=== PATIENT | female | born 1990 | race Caucasian/White ===

== ENCOUNTER → 2017-09-24 10:49 | Outpatient (CLI) | payer BC, SELFPAY | PROVIDERS: PCP Internal Medicine; Visit Provider Internal Medicine | DX: J11.1 Influenza due to unidentified influenza virus with other respiratory manifestations (principal) | CPT/HCPCS: 87275; 87276 ==

== ENCOUNTER 2021-04-01 10:29 | Emergency (ER) | payer BC, SELFPAY ==
[2021-04-01 11:13] VITALS: BP 133/67; PULSE 85; RESP 18; TEMP 36.6; O2SAT 96; BMI 41.5
--- NOTE | 2021-04-01 11:22 | HMH.EDUTC ---
[facility] [place] Clinical Impression: UTI (urinary tract infection) Qualifiers: Urinary tract infection type: site unspecified Hematuria presence: with hematuria Qualified Code(s): N39.0 - Urinary tract infection, site not specified Disposition: Home, Self-Care Condition on Discharge: Good Instructions: DI for Urinary Tract Infection (UTI) Additional Instructions: Drink plenty of fluids. Take tylenol or ibuprofen for pain or fever. Take the medications as directed. Follow up with your regular doctor. GO TO THE ER FOR ANY WORSENING SYMPTOMS The pyridium will make your urine turn orange, this is an expected side effect. It will stain your clothes if it comes into contact with them. Prescriptions: Ondansetron [Zofran 4mg ODT] 4 mg PO Q8HP PRN #20 tab.rapdis PRN Reason: Nausea Transmission Status: Received by [id number] Ciprofloxacin HCl 500 mg PO 14 #7 tab Transmission Status: Received by [id number] Phenazopyridine HCl [Pyridium 200mg Tablet] 200 pow PO TID #6 tab Transmission Status: Received by [id number] Referrals: Misbah Sanches [Primary Care Provider] - Time of Disposition: 11:51 Medical Decision Making - Medical Records Medical records reviewed: No: I reviewed the patient's medical records. - Sadi Inquiry Pt receiving controlled substance: No Vital Signs: 04/01/21 11:13 04/01/21 11:53 Temperature 97.8 F 98.3 F Temperature Source Oral Pulse Rate 81 Pulse Rate [Left] 85 Respiratory Rate 18 16 Blood Pressure 122/71 Blood Pressure [Right Arm] 133/67 Blood Pressure Mean [Right Arm] 89 02 Sat by Pulse Oximetry 96 - Lab Data Lab results reviewed: Yes: I reviewed the patient's lab results. Lab Results 04/01/21 11:16: Urine Color [place], Urine Appearance Cloudy, Urine pH 7.0, Ur Specific [place] 1.020, Urine Protein 1+, Urine Glucose (UA) Negative, Urine Ketones Negative, Urine Blood 3+, Urine Nitrate Positive A, Urine Bilirubin Negative, Urine Urobilinogen 1, Ur Leukocyte Esterase Trace Orders (Tests/Meds): ORDERS Category Date Time Status Urine Culture Stat Micro 04/01/21 11:34 Received [facility] UTC HPI - General Stated complaint: possible uti Time Seen by Provider: 04/01/21 11:25 Mode of Arrival: Ambulatory Source of Information: Patient Limitations: No Limitations Description of Symptoms (Recalled from Triage Doc. by RN): PT C/O BURNING WITH URINATION AND URINARY FREQUENCY SINCE FRIDAY. HEENT Symptoms (Recalled from RN notes): No Resp Symptoms (Recalled from RN notes): No Skin Symptoms (Recalled from RN notes): No MS Symptoms (Recalled from RN notes): No Functional Status (Recalled from RN notes): NA - History of Present Illness Provider Complaint: She c/o low back pain and burning while urinating since yesterday. She denies any fever or chills. - Related Data Home Medications Medication Instructions Recorded Confirmed Cetirizine HCl [Zyrtec] 10 mg PO DAILY 08/09/19 08/09/19 Meloxicam 7.5 mg PO DAILY 08/09/19 08/09/19 Sertraline HCl [Zoloft 50mg tablet] 50 mg PO DAILY 08/09/19 08/09/19 norethindrone-e.estradioL-iron 1 each PO DAILY 08/09/19 08/09/19 [Loestrin Fe 1.5-30 Tablet] Previous Rx's Medication Instructions Recorded Ibuprofen [Ibuprofen 600mg 600 mg PO Q6HP PRN #30 tab 08/09/19 Tablet] Ciprofloxacin HCl 500 mg PO 14 #7 tab 04/01/21 Ondansetron [Zofran 4mg ODT] 4 mg PO Q8HP PRN #20 tab.rapdis 04/01/21 Phenazopyridine HCl [Pyridium 200 pow PO TID #6 tab 04/01/21 200mg Tablet] Allergies Allergy/AdvReac Type Severity Reaction Status Date / Time Sulfa (Sulfonamide Allergy Mild Verified 06/04/19 16:50 Antibiotics) [SULFA (SULFONAMIDE ANTIBIOTICS)] - Worker's Comp Is this a Worker's Comp case?: No [facility] History - Hepatitis A Screen Drug use history?: No High risk sexual behaviors?: No History of sexually transmitted infection?: No Currently e
[2021-04-01 11:42] LABS: Apearance,Urine Cloudy (Clear); Bilirubin,Urine Negative (Negative); Blood, Urine 3+ (Negative); Color,Urine Amber (Yellow); Glucose,Urine (UA) Negative (Negative); Ketones,Urine Negative (Negative); Protein,Urine 1+ (Negative); UTC Leukocyte Esterase,Urine Trace (Negative); UTC Nitrate,Urine Positive (Negative); Urobilinogen,Urine 1 EU/dl (0.2)
[2021-04-01 11:53] VITALS: BP 122/71; PULSE 81; RESP 16; TEMP 36.8
== END 2021-04-01 11:57 | disposition home or self-care (01) ==
PROVIDERS: Emergency Provider Nurse Practitioner Family; PCP Internal Medicine
DX: N30.90 Cystitis, unspecified without hematuria (principal); B96.20 Unspecified Escherichia coli [E. coli] as the cause of diseases classified elsewhere
CPT/HCPCS: 81003; 87086; 87088; 87186; 99202; G0463

== ENCOUNTER → 2021-12-02 17:13 | Outpatient (CLI) | payer BC, SELFPAY | PROVIDERS: PCP Family Medicine; Visit Provider Family Medicine | DX: R63.5 Abnormal weight gain (principal); R53.83 Other fatigue; R06.83 Snoring; E66.01 Morbid (severe) obesity due to excess calories | CPT/HCPCS: G0399 ==

== ENCOUNTER 2022-04-29 03:12 | Emergency (ER) | payer BC, SELFPAY ==
[2022-04-29 03:14] VITALS: BP 135/67; PULSE 82; RESP 18; TEMP 36.9; O2SAT 98; BMI 41.5
--- NOTE | 2022-04-29 03:29 | CT_ITS ---
PROCEDURE INFORMATION: Exam: CT Abdomen And Pelvis Without Contrast Exam date and time: 04/29/2022 3:52 AM Age: 31 years old Clinical indication: Abdominal pain; Prior surgery; Surgery date: 6+ months; Surgery type: C section; Patient HX: Pain across epigastric area and into both flanks; Additional info: Epigastric pain TECHNIQUE: Imaging protocol: Computed tomography of the abdomen and pelvis without contrast. Radiation optimization: All CT scans at this facility use at least one of these dose optimization techniques: automated exposure control; mA and/or kV adjustment per patient size (includes targeted exams where dose is matched to clinical indication); or iterative reconstruction. COMPARISON: No relevant prior studies available. FINDINGS: Liver: Normal. No mass. Gallbladder and bile ducts: Normal. No calcified stones. No ductal dilation. Pancreas: Normal. No ductal dilation. Spleen: Normal. No splenomegaly. Adrenal glands: Normal. No mass. Kidneys and ureters: Normal. No hydronephrosis. No evidence of nephrolithiasis or urolithiasis. Stomach and bowel: Unremarkable. No obstruction. No mucosal thickening. Appendix: No evidence of appendicitis. Intraperitoneal space: Unremarkable. No free air. No significant fluid collection. Vasculature: Unremarkable. No abdominal aortic aneurysm. Lymph nodes: Unremarkable. No enlarged lymph nodes. Urinary bladder: Unremarkable as visualized. Reproductive: Unremarkable as visualized. Bones/joints: Unremarkable. No acute fracture. Soft tissues: Unremarkable. IMPRESSION: No acute findings.
[2022-04-29 03:43] LABS: Basophils # 0.1 K/mm3 (0-0.2); Eosinophils # 0.2 K/mm3 (0.0-0.4); Eosinophils % 1.8 % (0.1-12.0); Hematocrit 41.7 % (37.0-47.0); Hemoglobin 13.4 g/dL (12.2-16.2); Lymphocytes % 22.6 % (10-50); Mean Corpuscular Hemoglobin 29.9 pg (27.0-31.2); Mean Corpuscular Volume 93.2 fl (81-99); Mean Platelet Volume 8.3 fl (7.4-10.4); Monocytes # 0.3 K/mm3 (0.1-1.0); Monocytes % 3.8 % (1.7-9.3); Neutrophils # 6.4 K/mm3 (1.8-7.8); Neutrophils % 70.8 % (37.0-80.0); Platelet Count 278 K/mm3 (142-424); Red Blood Count 4.47 M/mm3 (4.20-5.40); Red Cell Distribution Width 13.7 % (11.5-17.5)
[2022-04-29 03:43] LABS: Microscopic, Urine URINE MICROSCOPIC (MICROSCOPIC)
[2022-04-29 03:45] LABS: Appearance,Urine CLEAR (Clear); Bilirubin,Urine Negative (Negative); Blood, Urine TRACE-I (Negative); Color,Urine YELLOW (Yellow); Glucose,Urine (UA) Negative (Negative); Ketones,Urine Negative (Negative); Leukocyte Esterase,Urine Negative (Negative); Nitrate,Urine Negative (Negative); Protein,Urine Negative (Negative); Specific Gravity, Urine >= 1.030 (1.005-1.030)
--- NOTE | 2022-04-29 03:46 | HMH.EDABDPAI ---
Discharge Plan Disposition Patient Disposition: Home, Self-Care Chief Complaint: Abdominal Pain Prescriptions Prescriptions: No Action norethindrone-e.estradiol-iron 1 EACH tablet 1 each PO DAILY meloxicam 7.5 MG tablet 7.5 mg PO DAILY sertraline 50 MG tablet 50 mg PO DAILY cetirizine 10 MG capsule 10 mg PO DAILY ibuprofen 600 MG tablet 600 mg PO Q6HP PRN (Reason: Mild Pain) Qty: 30 0RF Referrals Follow up/Referrals: Misbah Sanches MD [Primary Care Provider] - See instructions Clinical Impressions Clinical Impression: Abdominal pain Instructions Patient Instructions: DI for Acute Abdominal Pain Discharge ED Provider: Petros Pedersen Abdominal Pain HPI General Chief Complaint: Abdominal Pain Stated Complaint: ? gallbladder pain Time Seen by Provider: 04/29/22 03:46 Mode of Arrival: Ambulatory Source of Information: Patient, Spouse and Medical Record Limitations: No Limitations Description of Symptoms (Recalled from ER Triage Doc. by RN): PT REPORTS RIGHT UPPER/EPIGASTRIC PAIN WITH RADIATION TO HER BACK. PT REPORTS A PREVIOUS EPISODE THAT WAS SIMILAR AND STATES SHE THINKS IT IS HER GALLBLADDER. History of Present Illness HPI narrative: rt upper abd pain with n/v MD complaint: abdominal pain Onset (ago): hour(s) Consistency: intermittent Location: RUQ Severity: moderate Radiation: RUQ Associated symptoms: nausea and vomiting Related Data Home Medications Medication Instructions Recorded Confirmed cetirizine 10 mg capsule 10 mg PO DAILY Allergy symptoms 08/09/19 04/29/22 meloxicam 7.5 mg tablet 7.5 mg PO DAILY VASCULAR 08/09/19 04/29/22 MALFORMATION norethindrone 1.5 mg-ethinyl 1 each PO DAILY control 08/09/19 04/29/22 estradiol 30 mcg(21)/iron 75 mg(7) tablet sertraline 50 mg tablet 50 mg PO DAILY Anxiety 08/09/19 04/29/22 Previous Rx's Medication Instructions Recorded ibuprofen 600 mg tablet 600 mg PO Q6HP PRN Mild Pain #30 08/09/19 tabs Allergies Allergy/AdvReac Type Severity Reaction Status Date / Time Sulfa (Sulfonamide Allergy Mild Verified 06/04/19 16:50 Antibiotics) [SULFA (SULFONAMIDE ANTIBIOTICS)] PFSH PFSH Medical History (Updated 04/29/22 @ 05:10 by Petros Pedersen MD) Anxiety Social History (Updated 04/29/22 @ 03:39 by Kellen Vazquez RN) Smoking Status: Never smoker alcohol intake: never current occupational status: employed Travel in the last 8 weeks: None household members: family housing: house ROS Obtained: Yes All systems reviewed & no additional complaints except as documented Constitutional Constitutional: Denies fever(s) ENT Ears, Nose, Mouth, and Throat: Denies epistaxis Cardiovascular Cardiovascular: Denies chest pain with activity Respiratory Respiratory: Denies cough Gastrointestinal Gastrointestingal: Reports as per HPI and vomiting Physical Exam General General appearance: alert and obese Head Head exam: normocephalic Eye Eye exam: Present PERRL and EOMI; Absent scleral icterus ENT ENT exam: Present mucous membranes moist Neck Neck exam: Present trachea midline Respiratory Respiratory exam: Present normal lung sounds bilaterally Cardiovascular Cardiovascular exam: Present regular rate Abdominal Exam Abdominal exam: Present soft, tenderness and Contreras's sign; Absent guarding Abdominal tenderness: Present RUQ and moderate Extremities Exam Extremities exam: Present full ROM Back Exam Back exam: Absent CVA tenderness (R) Neurological Exam Neurological exam: Present alert, oriented X3 and CN II-XII intact Psychiatric Psychiatric exam: Present normal affect Skin Skin exam: Absent rash Medical Decision Making Medical Records Medical records reviewed: Yes I reviewed the patient's medical records. Sadi Inquiry Pt receiving controlled substance: No Vital Signs: 04/29/22 03:14 04/29/22 04:37 04/29/22 05:01 Temperature 98.4 F 98.1 F Temper
[2022-04-29 03:48] LABS: Amorphous Sediment,Urine Trace /lpf; Squamous Epithelial Cell,Urine Occasional #/hpf (0-5); Urine Pregnancy, HCG Qual. Negative (Negative); WBC,Urine Occasional #/hpf (0-3)
[2022-04-29 03:52] LABS: Alanine Aminotransferase 46 U/L (12-78); Albumin Level 3.8 g/dl (3.5-5.0); Albumin/Globulin Ratio 1.3 (1.1-1.8); Alkaline Phosphatase 76 U/L (38-126); Amylase 67 U/L (30-110); Anion Gap 11.9 mEq/L (5-15); Aspartate Amino Transferase 73 U/L (14-36); Bilirubin,Total 0.4 mg/dl (0.2-1.3); Blood Urea Nitrogen 17 mg/dl (7-17); Calcium 8.5 mg/dl (8.4-10.2); Carbon Dioxide 23 mmol/L (22.0-30.0); Chloride 109 mmol/L (98-107); Creatinine Clearance Estimated 88 mL/min (50-200); Estimated Glomerular Filt Rate 98 ml/min (>60); GFR (African American) 118 ML/MIN (>60); Glucose 114 mg/dl (74-100); Lipase 127 U/L (23-300); Potassium 3.9 mmoL/L (3.5-5.1); Sodium 140 mmol/L (136-145); Total Protein,Serum 6.8 g/dl (6.3-8.2)
[2022-04-29 03:57] LABS: C-Reactive Protein 15.3 mg/L (0-4)
[2022-04-29 04:13] LABS: Erythrocyte Sedimentation Rate 19 mm/hr (0-20)
--- NOTE | 2022-04-29 04:20 | PC.NURSE ---
PT AWARE OF NPO STATUS AND EXPECTED WAIT TIMES.
[2022-04-29 04:37] VITALS: BP 135/97; PULSE 83; RESP 15; TEMP 36.7; O2SAT 98
--- NOTE | 2022-04-29 05:00 | PC.NURSE ---
MD MADE AWARE THAT ALL TEST RESULTS ARE BACK. PT REQUESTING DISCHARGE.
[2022-04-29 05:01] VITALS: BP 149/90; PULSE 81; RESP 16; TEMP 36.7; O2SAT 97
--- NOTE | 2022-04-29 05:08 | PC.NURSE ---
PT AWARE OF PLAN TO DISCHARGE.
== END 2022-04-29 05:16 | disposition home or self-care (01) ==
PROVIDERS: Emergency Provider Emergency Medicine; PCP Internal Medicine
DX: R10.11 Right upper quadrant pain (principal); R11.2 Nausea with vomiting, unspecified
CPT/HCPCS: 74176; 80053; 81001; 81025; 82150; 83690; 84145; 85025; 85651; 86140; 96361; 96374; 96375; 99284; J2405

== ENCOUNTER → 2022-05-08 10:13 | Outpatient (CLI) | payer BC, SELFPAY ==
--- NOTE | 2022-05-08 10:19 | US_ITS ---
FINAL REPORT CLINICAL HISTORY: RUQ PAIN FINDINGS: RIGHT UPPER QUADRANT ULTRASOUND Sonographic images of the right upper quadrant were obtained. The pancreas is partially obscured.The liver has an unremarkable appearance. There are multiple gallstones in the gallbladder. Moderate sludge is identified. There is no evidence of gallbladder wall thickening. There is a small rounded hyperechoic focus in the region of the maty hepatis, may represent a small hemangioma measuring less than 1 cm. The common duct is normal. Limited images of the right kidney are normal. IMPRESSION: Stones and sludge in the gallbladder without biliary obstruction. Reviewed, Interpreted and Dictated by Lucas Puente MD Transcribed by Magda Connell Authenticated and [facility]
== END ==
PROVIDERS: PCP Internal Medicine; Visit Provider Physician Assistant
DX: R10.11 Right upper quadrant pain (principal)
CPT/HCPCS: 76705

== ENCOUNTER → 2022-05-25 08:49 | Outpatient (CLI) | payer BC, SELFPAY ==
[2022-05-25 10:05] LABS: Urine Pregnancy, HCG Qual. Negative (Negative)
[2022-05-25 10:06] LABS: Basophils # 0.1 K/mm3 (0-0.2); Basophils % 1.3 % (0.1-2.0); Eosinophils # 0.2 K/mm3 (0.0-0.4); Eosinophils % 2.2 % (0.1-12.0); Hematocrit 43.1 % (37.0-47.0); Hemoglobin 14.1 g/dL (12.2-16.2); Lymphocytes # 1.8 K/mm3 (0.7-4.5); Lymphocytes % 19.2 % (10-50); Mean Corpuscular HGB Conc 32.7 g/dL (31.8-35.4); Mean Corpuscular Hemoglobin 29.6 pg (27.0-31.2); Mean Corpuscular Volume 90.6 fl (81-99); Mean Platelet Volume 8.4 fl (7.4-10.4); Monocytes # 0.4 K/mm3 (0.1-1.0); Monocytes % 4.2 % (1.7-9.3); Neutrophils # 6.9 K/mm3 (1.8-7.8); Platelet Count 310 K/mm3 (142-424); Red Blood Count 4.76 M/mm3 (4.20-5.40); Red Cell Distribution Width 13.6 % (11.5-17.5); White Blood Count 9.4 K/mm3 (4.8-10.8)
[2022-05-25 10:14] LABS: Chloride 106 mmol/L (98-107); Potassium 4.6 mmoL/L (3.5-5.1); Sodium 140 mmol/L (136-145)
[2022-05-25 10:17] LABS: Alanine Aminotransferase 19 U/L (12-78); Albumin Level 4.1 g/dl (3.5-5.0); Albumin/Globulin Ratio 1.4 (1.1-1.8); Alkaline Phosphatase 79 U/L (38-126); Anion Gap 17.6 mEq/L (5-15); Aspartate Amino Transferase 25 U/L (14-36); Bilirubin,Total 0.4 mg/dl (0.2-1.3); Blood Urea Nitrogen 19 mg/dl (7-17); Carbon Dioxide 21 mmol/L (22.0-30.0); Estimated Glomerular Filt Rate 117 ml/min (>60); GFR (African American) 141 ML/MIN (>60); Globulin 2.9 g/dL (1.3-3.2); Glucose 81 mg/dl (74-100)
== END ==
PROVIDERS: PCP Internal Medicine; Visit Provider Surgery
DX: Z01.812 Encounter for preprocedural laboratory examination (principal); Z20.822 Contact with and (suspected) exposure to COVID-19; K80.20 Calculus of gallbladder without cholecystitis without obstruction
CPT/HCPCS: 36415; 80053; 81025; 85025; C9803; U0003; U0005

== ENCOUNTER 2022-05-27 10:17 | Day surgery (SDC) | payer BC, SELFPAY ==
[2022-05-23 09:25] VITALS: BMI 41.5
[2022-05-27] VITALS (12 sets, daily range): BP systolic 106–142; BP diastolic 70–87; PULSE 82–108; RESP 14–18; TEMP 36.1–43; O2SAT 94–100
--- NOTE | 2022-05-27 10:50 | EXP.ANES.CKL ---
[facility] Medical History Allergies Anxiety Gallbladder disease History of COVID-19 History of gastroesophageal reflux (GERD) Surgical History History of placement of ear tubes Hx of adenoidectomy Hx of section Hx of tonsillectomy [place] teeth removed Family History Other No significant family history Social History Smoking Status: Never smoker alcohol intake: never substance use type: denies use current occupational status: employed Travel in the last 8 weeks: None household members: family housing: house [facility] Anesthesia Checklist Patient Identification Patient Identification: Verbal (Name & ) Structural Data Admitted From: Home Planned Operative Procedure/s: lap max Consent for Planned Operative Procedure(s) Verified: Yes NPO Status Verified Time NPO: 00:00 Additional verifications Anesthesia Reactions: Yes (nausea) Hx Blood Transfusions: No Blood Transfusion Reaction: No Airway Assessment C-Spine Mobility Assessed: Yes TMJ Mobility Assessed: Yes Dentition: Good Dentition Neurological Assessment Level of Consciousness: Awake, Alert and Appropriate Anesthesia Plan Anesthesia Risk discussed: Yes Anesthesia Plan: Verified ASA Class: II Anesthesia Type: General
--- NOTE | 2022-05-27 12:21 | EXP.OP.NOTE ---
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 Trivedi for gallbladder.? She has been having symptoms over the past several weeks consistent with biliary colic.? She had a severe attack after she had eaten a fish velasco and presented to the emergency department on 04/29/2022 with symptoms of severe epigastric pain radiating into her right upper quadrant and into the right back.? She was able to be managed as an outpatient at that time and underwent gallbladder ultrasound as an outpatient which reveals multiple gallstones.? She has had 2 severe attacks and has had some ongoing minor symptoms.? She has daily discomfort.? She has been watching her diet. The options were discussed with her and she wished to pursue cholecystectomy. Operative findings:: She had a somewhat distended gallbladder with some omental adhesions. There were small stones. She had fatty infiltration of the liver. Operative note:: Patient was taken to the operating room. She was given preoperative intravenous antibiotics. In the operating room she was placed in a supine position. General anesthesia was induced via endotracheal tube. Abdomen was prepped and draped in the standard surgical fashion. Subumbilical skin incision was made and while performing abdominal wall lift Veress needle was inserted. CO2 pneumoperitoneum was achieved to 15 mmHg. 11 mm optical trocar was inserted. Intraperitoneal contents were visualized. She was positioned in reverse Trendelenburg left side down. She was noted to have some mild fatty infiltration of the liver and hepatomegaly. The gallbladder was grasped retracted anteriorly and superiorly over the dome of the liver. There were some omental adhesions to the neck of the gallbladder which were taken down using blunt dissection. Infundibulum of the gallbladder was retracted anterolaterally. Blunt dissection was carried out at the neck of the gallbladder bluntly incising the visceral peritoneum. The cystic duct and cystic artery were identified and the critical view of safety. Cystic duct was isolated, multiply clipped, and sharply divided. Cystic artery was carefully coagulated with JUAN ALBERTO ultrasonic harmonic ji and divided. Gallbladder was dissected free from the liver in a retrograde fashion using JUAN ALBERTO ultrasonic harmonic ji. Gallbladder was placed within an Endo Catch retrieval device and removed from the peritoneal cavity via the umbilical trocar site. Limited spot use of electrocautery was used on the gallbladder fossa for good hemostasis. Fascia at the umbilicus was closed with the laparoscopic Neoclose device. Trochars were then removed as CO2 pneumoperitoneum was evacuated. Local anesthetic was infiltrated. Skin incisions were closed with 4-0 Monocryl in a subcuticular fashion. Steri-Strips and dressings were applied. Condition: stable Disposition: PACU Complications:: None immediately apparent
--- NOTE | 2022-05-27 12:38 | P.PNANES_ITS ---
[facility] Anesthesia Record Part I Anesthesia Record I Intake, IV Amount: 700 Estimated blood loss (mL): 15 Urine output (mL): 15 Blood Products used (#): none Blood Pressure: 106/72 SaO2: 94 Pulse Rate: 108 Respiratory Rate: 18 Temperature: 97.7 F Patient is:: Drowsy and Stable Stable to PACU at:: 12:27
--- NOTE | 2022-05-28 07:15 | EXP.ANES.II ---
[facility] Anesthesia Record Part II Anesthesia Record Part II Discharge Time: 12:58 Destination: Surgical Day Care (OP Surgery) PACU nurse assessment reviewed?: Yes Patient Condition:: Good Anesthesia Complications:: None Swallowing reflex intact?: Yes Cyanosis?: No Blood Pressure: 120/83 Pulse Rate: 82 Temperature: 97.2 F Mental Status: Alert & Oriented Pain level:: 0 Nausea and/or vomitting:: None Intake, IV Amount: 0
[2022-05-28 07:17] VITALS: BP 120/83; PULSE 82; TEMP 36.2
== END 2022-05-27 13:35 | disposition home or self-care (01) ==
PROVIDERS: PCP Internal Medicine; Visit Provider Surgery
PROC: 0FT44ZZ Resection of Gallbladder, Percutaneous Endoscopic Approach (ICD-10-PCS; CPT 47562; principal; 2022-05-27 12:45)
DX: K80.12 Calculus of gallbladder with acute and chronic cholecystitis without obstruction (principal); Z79.899 Other long term (current) drug therapy
CPT/HCPCS: 47562; 88304; 96374; J2405

== ENCOUNTER → 2022-09-03 20:15 | Outpatient (CLI) | payer BC, SELFPAY | LOC: SL 20:18 | PROVIDERS: PCP Family Medicine; Visit Provider Nurse Practitioner Family | DX: G47.33 Obstructive sleep apnea (adult) (pediatric) (principal); R40.0 Somnolence; R06.83 Snoring; E66.9 Obesity, unspecified; Z68.41 Body mass index [BMI] 40.0-44.9, adult | CPT/HCPCS: 95810 ==

== ENCOUNTER 2022-11-04 15:12 | Emergency (ER) | payer BC, SELFPAY ==
--- NOTE | 2022-11-04 15:16 | XR_ITS ---
FINAL REPORT CLINICAL HISTORY: fall in hole, twisted rt ankle FINDINGS: Right ankle Three views were obtained. There is no acute fracture or dislocation. The joint spaces appear normal. No soft tissue abnormality is identified. IMPRESSION: No acute process. Reviewed, Interpreted and Dictated by Lucas Puente MD Transcribed by Magda Connell Authenticated and [facility]
--- NOTE | 2022-11-04 15:16 | XR_ITS ---
FINAL REPORT CLINICAL HISTORY: fall in hole, twisted rt ankle FINDINGS: Right foot Three views were obtained. There is no acute fracture or dislocation. The joint spaces appear normal. No soft tissue abnormality is identified. IMPRESSION: No acute process. Reviewed, Interpreted and Dictated by Lucas Puente MD Transcribed by Magda Connell Authenticated and [facility]
[2022-11-04 15:20] VITALS: BP 163/94; PULSE 87; RESP 20; TEMP 36.8; O2SAT 97; BMI 43.4
--- NOTE | 2022-11-04 15:37 | EXP.UTC ---
Discharge Plan Disposition Patient Disposition: Home, Self-Care Condition: Good Prescriptions Prescriptions: No Action norethindrone-e.estradiol-iron 1 EACH tablet 1 each PO DAILY meloxicam 7.5 MG tablet 7.5 mg PO DAILY sertraline 50 MG tablet 100 mg PO DAILY cetirizine 10 MG capsule 10 mg PO DAILY Referrals Follow up/Referrals: Misbah Sanches MD [Primary Care Provider] - See instructions Activity Restrictions/Add. Instructions Additional Instructions/Restrictions: *weight bearing as tolerated *RICE, Rest the extremity, Ice 15-20 minutes 3-4 times daily, Compress- wear the rip wrap as discussed as much as possible to help reduce swelling and pain, Elevate the extremity when at rest *Rip wrap is for support and help control swelling, use it except in the shower. Be sure that is not to tight but not to loose either *Elevate when resting? *Ibuprofen 600-800mg every 6-8 hours as needed for pain an inflammation. If need something more can take Tylenol in between doses of Ibuprofen to help Immediately follow up with your family doctor for new or worsening of symptoms, or no noticeable improvement over the next 3-5 days Clinical Impressions Clinical Impression: Foot sprain Qualifiers: Encounter type: initial encounter Laterality: right Qualified Code(s): S93.601A - Unspecified sprain of right foot, initial encounter Instructions Patient Instructions: How To Perform RICE (Rest, Ice, Compress, Elevate), How to Apply an Rip Wrap Discharge ED Provider: Lay Joseph [facility] General Stated complaint: ao 11/04 fall, right foot pain Mode of Arrival: Ambulatory Source of Information: Patient Limitations: No Limitations Time Seen by Provider: 11/04/22 15:37 Description of Symptoms (Recalled from Triage Doc. by RN): twisted right ankle in a hole today HEENT Symptoms (Recalled from RN notes): Yes Resp Symptoms (Recalled from RN notes): No Skin Symptoms (Recalled from RN notes): No MS Symptoms (Recalled from RN notes): No Functional Status (Recalled from RN notes): n/a History of Present Illness Provider Complaint: Patient states that earlier today she was walking and stepped in a hole and twisted her right foot and ankle States that she has been having pain when she puts weight on it States that this evening it was still hurting so she came in Related Data Home Medications Medication Instructions Recorded Confirmed cetirizine 10 mg capsule 10 mg PO DAILY Allergy symptoms 08/09/19 11/04/22 meloxicam 7.5 mg tablet 7.5 mg PO DAILY VASCULAR 08/09/19 11/04/22 MALFORMATION norethindrone 1.5 mg-ethinyl 1 each PO DAILY control 08/09/19 11/04/22 estradiol 30 mcg(21)/iron 75 mg(7) tablet sertraline 50 mg tablet 100 mg PO DAILY Anxiety 08/09/19 11/04/22 Allergies Allergy/AdvReac Type Severity Reaction Status Date / Time Sulfa (Sulfonamide Allergy Intermediate Hives Verified 11/04/22 15:35 Antibiotics) [SULFA (SULFONAMIDE ANTIBIOTICS)] Worker's Comp Is this a Worker's Comp case?: No [facility] Disclaimer: The information contained in this section may have been updated after the patient was seen, as this information can be updated by other users. Medical History Allergies Anxiety Gallbladder disease History of COVID-19 History of gastroesophageal reflux (GERD) Surgical History History of laparoscopic cholecystectomy History of placement of ear tubes Hx of adenoidectomy Hx of section Hx of tonsillectomy [place] teeth removed Family History Other TIMBO (obstructive sleep apnea) Social History Smoking Status: Never smoker alcohol intake: never substance use type: denies use current occupational status: employed Travel in the last 8 weeks: No
[2022-11-04 16:45] VITALS: BP 163/94; PULSE 87; RESP 20; TEMP 36.8; O2SAT 97
== END 2022-11-04 16:45 | disposition home or self-care (01) ==
PROVIDERS: Emergency Provider Nurse Practitioner; PCP Internal Medicine
DX: S93.601A Unspecified sprain of right foot, initial encounter (principal); W18.42XA Slipping, tripping and stumbling without falling due to stepping into hole or opening, initial encounter
CPT/HCPCS: 29540; 73610; 73630; 99212; 99213; G0463

== ENCOUNTER 2023-10-17 10:31 | Outpatient (CLI) | payer BC, SELFPAY ==
[2023-10-17 11:00] LABS: Basophils # 0.1 K/mm3 (0-0.2); Basophils % 0.8 % (0.1-2.0); Eosinophils # 0.1 K/mm3 (0.0-0.4); Eosinophils % 2.3 % (0.1-12.0); Hematocrit 42.6 % (37.0-47.0); Hemoglobin 13.9 g/dL (12.2-16.2); Lymphocytes # 1.6 K/mm3 (0.7-4.5); Lymphocytes % 27.6 % (10-50); Mean Corpuscular HGB Conc 32.6 g/dL (31.8-35.4); Mean Corpuscular Volume 92.2 fl (81-99); Mean Platelet Volume 8.4 fl (7.4-10.4); Monocytes # 0.3 K/mm3 (0.1-1.0); Monocytes % 5.1 % (1.7-9.3); Neutrophils # 3.8 K/mm3 (1.8-7.8); Neutrophils % 64.2 % (37.0-80.0); Platelet Count 265 K/mm3 (142-424); Red Blood Count 4.62 M/mm3 (4.20-5.40); Red Cell Distribution Width 13.7 % (11.5-17.5); White Blood Count 5.9 K/mm3 (4.8-10.8)
[2023-10-17 11:45] LABS: Alanine Aminotransferase 24 U/L (12-78); Albumin Level 4.2 g/dl (3.5-5.0); Albumin/Globulin Ratio 1.5 (1.1-1.8); Alkaline Phosphatase 75 U/L (38-126); Anion Gap 11.5 mEq/L (5-15); Aspartate Amino Transferase 24 U/L (14-36); Bilirubin,Total 0.6 mg/dl (0.2-1.3); Blood Urea Nitrogen 16 mg/dl (7-17); Calcium 8.7 mg/dl (8.4-10.2); Carbon Dioxide 23 mmol/L (22.0-30.0); Chloride 110 mmol/L (98-107); Estimated Glomerular Filt Rate 116 ml/min (>60); GFR (African American) 140 ML/MIN (>60); Globulin 2.8 g/dL (1.3-3.2); Glucose 86 mg/dl (74-100); Potassium 4.5 mmoL/L (3.5-5.1); Sodium 140 mmol/L (136-145)
[2023-10-21 10:32] LABS: Anti Mullerian Hormone (AMH) 8.91
== END 2023-10-17 23:59 ==
PROVIDERS: PCP Internal Medicine; Visit Provider Obstetrics & Gynecology
DX: Z79.1 Long term (current) use of non-steroidal anti-inflammatories (NSAID) (principal)
CPT/HCPCS: 36415; 80053; 82397; 85025

== ENCOUNTER 2023-10-24 09:43 | Outpatient (CLI) | payer BC, SELFPAY ==
--- NOTE | 2023-10-24 09:44 | FL_ITS ---
FINAL REPORT CLINICAL HISTORY: desire for 0.45 min DAP 925.91 FINDINGS: FLUOROSCOPY LESS THAN 1 HOUR HISTORY: Fluoroscopy guidance. Fluoroscopic guidance was provided for hysterosalpingography. 7 spot films were obtained. A total of 0.45 minutes of fluoroscopy time were used. Peritoneal contrast spillage is noted bilaterally. Total DAP: 925.91 mGy IMPRESSION: As above. Reviewed, Interpreted and Dictated by Efrain Herrera III, MD Transcribed by Odalys Anna Authenticated and [facility]
[2023-10-24] MEDS: IOPAMIDOL-370 (76%);100ML BOTTLE 50 ML IV (11:54)
== END 2023-10-24 23:59 ==
LOC: RAD 09:44
PROVIDERS: PCP Internal Medicine; Visit Provider Obstetrics & Gynecology
DX: Z31.9 Encounter for procreative management, unspecified (principal)
CPT/HCPCS: 74740; Q9967

== ENCOUNTER 2023-10-29 15:41 | Outpatient (CLI) | payer BC, SELFPAY ==
--- NOTE | 2023-10-29 15:43 | US_ITS ---
PROCEDURE: US TRANSVAGINAL CLINICAL INDICATION: Follicle Scan Day 13 of cycle COMPARISON: No exams were available for comparison FINDINGS: Transvaginal sonographic images of the pelvis were obtained. UTERUS: 7.1cm x 3.7 cmx 3.8 cm anteverted with a combined endometrial thickness of 5.4mm. LEFT OVARY: 3.0cmx2.8 cmx2.0cm with a volume of 8.7ml. There are 15 follicles in the left ovary. Follicle 1.: 0.65 cm Follicle 2.: 0.78 cm Follicle 3.: 0.43 cm Follicle 4: 0.54 cm Follicle 5.: 0.35 cm Follicle 6.: 0.62 cm Follicle 7.: 0.34 cm Follicle 8.: 0.29 cm Follicle 9.: 0.54 cm Follicle 10.: 0.62 cm Follicle 11.: 0.72 cm Follicle 12.: 0.64 cm Follicle 13.: 0.68 cm Follicle 14.: 1.1 cm Follicle 15.: 0.59 cm. RIGHT OVARY: 2.6 cmx 2.4cmx2.0cm with a volume of 7.8ml. There are 14 follicles in the right ovary. Follicle 1.: 0.61 cm Follicle 2.: 0.66 cm Follicle 3.: 0.68 cm Follicle 4.: 0.72 cm Follicle 5.: 0.71 cm Follicle 6.: 0.90 cm Follicle 7.: 0.41 cm Follicle 8.: 0.61 cm Follicle 9.: 0.30 cm Follicle 10.: 0.48 cm Follicle 11.: 0.84 cm Follicle 12.: 0.55 cm Follicle 13.: 0.74 cm Follicle 14.: 0.68 cm Both ovaries are seen and have multiple follicles. Doppler flow to both ovaries are seen. There is no fluid in the cul-de-sac. IMPRESSION: 1. Anteverted uterus normal in shape and size. The endometrium is normal in appearance and measures 5.4 mm. 2. Both ovaries are seen and have multiple follicles. The left ovary has 15 follicles in the right ovary has 14 follicles. 3. No fluid in the cul-de-sac. Dictated by: Magan Castillo MD 10/29/2023 17:00 Magan Castillo MD in [place] 10/29/2023 17:00
== END 2023-10-29 23:59 ==
LOC: RAD 15:43
PROVIDERS: PCP Internal Medicine; Visit Provider Obstetrics & Gynecology
DX: N97.0 Female infertility associated with anovulation (principal)
CPT/HCPCS: 76830

== ENCOUNTER 2023-12-05 14:09 | Outpatient (CLI) | payer BC, SELFPAY ==
[2023-12-06 09:14] LABS: Progesterone 2.8 ng/mL (.)
== END 2023-12-05 23:59 | disposition home or self-care (01) ==
LOC: LAB 14:10
PROVIDERS: PCP Internal Medicine; Visit Provider Obstetrics & Gynecology
DX: E28.2 Polycystic ovarian syndrome (principal)
CPT/HCPCS: 36415; 84144

== ENCOUNTER 2023-12-26 12:18 | Outpatient (CLI) | payer BC, SELFPAY ==
--- NOTE | 2023-12-26 12:18 | US_ITS ---
PROCEDURE: US TRANSVAGINAL CLINICAL INDICATION: pcos, infertility COMPARISON: US US TRANSVAGINAL from 10/29/2023 FINDINGS: Transvaginal sonographic images of the pelvis were obtained. UTERUS: 8.2cm x 3.8 cmx 3.6 cm anteverted with a combined endometrial thickness of 7.2mm. 4 mm nabothian cyst. There is an anterior fibroid measuring 1.7 cm x 1.6 cm x 1.5 cm. LEFT OVARY: [id number] with a volume of 10.2ml. There is a single follicle measuring 2.2 cm. Left ovary is difficult to visualize. RIGHT OVARY: 2cmx 5ffq9cm with a volume of 7.4ml. Follicle 1. 0.89 cm Follicle 2. 0.73 cm Follicle 3. 0.95 cm Follicle 4. 0.1 cm Follicle 5. 1.03 cm Follicle 6. 0.69 cm Follicle 7. 0.49 cm Follicle 8. 0.47 cm Follicle 9. 1.06 cm Follicle 10. 1.11 cm Follicle 11. 1.14 cm Both ovaries are seen and appear polycystic. Doppler flow to both ovaries are seen. There is no fluid in the cul-de-sac. IMPRESSION: 1. Anteverted uterus normal in shape and size. 2. There is an anterior fibroid measuring 1.7 cm. 3. Left ovary is difficult to visualize but appears to have a single follicle. 4. Right ovary appears polycystic and there were multiple small follicles. 5. No fluid in the cul-de-sac Dictated by: Magan Castillo MD 12/26/2023 18:19 Magan Castillo MD in [place] 12/26/2023 18:19
== END 2023-12-26 23:59 | disposition home or self-care (01) ==
LOC: RAD 12:18
PROVIDERS: PCP Internal Medicine; Visit Provider Obstetrics & Gynecology
DX: E28.2 Polycystic ovarian syndrome (principal); N97.0 Female infertility associated with anovulation
CPT/HCPCS: 76830

== ENCOUNTER 2024-01-06 08:12 | Outpatient (CLI) | payer BC, SELFPAY ==
[2024-01-07 12:59] LABS: Progesterone 22.5 ng/mL (.)
== END 2024-01-06 23:59 | disposition home or self-care (01) ==
LOC: LAB 08:12
PROVIDERS: PCP Internal Medicine; Visit Provider Obstetrics & Gynecology
DX: N97.0 Female infertility associated with anovulation (principal); E28.2 Polycystic ovarian syndrome
CPT/HCPCS: 36415; 84144

== ENCOUNTER 2024-01-20 15:38 | Outpatient (CLI) | payer BC, SELFPAY ==
[2024-01-22 11:15] LABS: FSH 5.7 mIU/mL (.); LH 6.8 mIU/mL (.); Progesterone 0.3 ng/mL (.)
== END 2024-01-20 23:59 | disposition home or self-care (01) ==
LOC: LAB 15:39
PROVIDERS: Visit Provider Obstetrics & Gynecology
DX: N97.0 Female infertility associated with anovulation (principal); E28.2 Polycystic ovarian syndrome
CPT/HCPCS: 36415; 83001; 83002; 84144

== ENCOUNTER 2024-01-27 13:34 | Outpatient (CLI) | payer BC, SELFPAY ==
--- NOTE | 2024-01-27 13:34 | US_ITS ---
PROCEDURE: US TRANSVAGINAL CLINICAL INDICATION: Follicle scan COMPARISON: US US TRANSVAGINAL from 12/26/2023 FINDINGS: Transvaginal sonographic images of the pelvis were obtained. UTERUS: 7.7 cm x 5.0cmx 3.9 cm anteverted with a combined endometrial thickness of 6.9mm. Homogeneous endometrium. There are multiple small nabothian cysts in the cervix. There appears to be an anterior fibroid measures 1.7 cm x 1.3 cm x 1.6 cm. LEFT OVARY: 2.0cmx3.1cmx2.6cm with a volume of 8.3ml. More difficult to visualize. Follicle 1. 1.51 cm. Follicle 2. 1.89 cm. RIGHT OVARY: 3.9 cmx 2.2cmx2.4cm with a volume of 10.5ml. Follicle 1. 0.66 cm. Follicle 2. 1.45 cm. Follicle 3. 1.56 cm. Follicle 4. 1.38 cm. Follicle 5. 0.57 cm. Follicle 6. 0.63 cm. Follicle 7. 0.66 cm. The right ovary has a polycystic appearance with multiple small peripheral follicles. Both ovaries are seen and appear normal. Doppler flow to both ovaries are seen. There is no fluid in the cul-de-sac. IMPRESSION: 1. Anteverted uterus normal in shape and size. The endometrium is 6.9 mm and appears homogeneous. 2. Both ovaries are seen and appear normal. 3. The right ovary has 7 small follicles. The left ovary has 2 small follicles. 4. No fluid in the cul-de-sac. Dictated by: Magan Castillo MD 01/27/2024 18:11 Magan Castillo MD in [place] 01/27/2024 18:11
== END 2024-01-27 23:59 | disposition home or self-care (01) ==
LOC: RAD 13:34
PROVIDERS: PCP Internal Medicine; Visit Provider Obstetrics & Gynecology
DX: N97.0 Female infertility associated with anovulation (principal)
CPT/HCPCS: 76830

== ENCOUNTER 2024-02-06 13:46 | Outpatient (CLI) | payer BC, SELFPAY ==
[2024-02-08 08:19] LABS: Progesterone 24.9 ng/mL (.)
== END 2024-02-06 23:59 | disposition home or self-care (01) ==
PROVIDERS: PCP Internal Medicine; Visit Provider Obstetrics & Gynecology
DX: N97.0 Female infertility associated with anovulation (principal)
CPT/HCPCS: 36415; 84144

== ENCOUNTER 2024-02-25 11:56 | Outpatient (CLI) | payer BC, SELFPAY ==
[2024-02-25 12:21] LABS: Basophils % 0.7 % (0.1-2.0); Eosinophils # 0.2 K/mm3 (0.0-0.4); Eosinophils % 2.7 % (0.1-12.0); Hematocrit 37.6 % (37.0-47.0); Hemoglobin 12.3 g/dL (12.2-16.2); Lymphocytes # 1.7 K/mm3 (0.7-4.5); Lymphocytes % 27.1 % (10-50); Mean Corpuscular HGB Conc 32.7 g/dL (31.8-35.4); Mean Corpuscular Hemoglobin 29.6 pg (27.0-31.2); Mean Corpuscular Volume 90.4 fl (81-99); Monocytes # 0.3 K/mm3 (0.1-1.0); Monocytes % 4.8 % (1.7-9.3); Neutrophils # 4.2 K/mm3 (1.8-7.8); Neutrophils % 64.7 % (37.0-80.0); Platelet Count 274 K/mm3 (142-424); Red Blood Count 4.16 M/mm3 (4.20-5.40); Red Cell Distribution Width 14.2 % (11.5-17.5); White Blood Count 6.4 K/mm3 (4.8-10.8)
[2024-02-25 12:37] LABS: Alanine Aminotransferase 24 U/L (12-78); Albumin/Globulin Ratio 1.5 (1.1-1.8); Alkaline Phosphatase 61 U/L (38-126); Anion Gap 10.1 mEq/L (5-15); Aspartate Amino Transferase 24 U/L (14-36); Bilirubin,Total 0.4 mg/dl (0.2-1.3); Blood Urea Nitrogen 15 mg/dl (7-17); Calcium 8.8 mg/dl (8.4-10.2); Carbon Dioxide 25 mmol/L (22.0-30.0); Chloride 107 mmol/L (98-107); Estimated Glomerular Filt Rate 115 ml/min (>60); GFR (African American) 139 ML/MIN (>60); Globulin 2.7 g/dL (1.3-3.2); Glucose 84 mg/dl (74-100); Potassium 4.1 mmoL/L (3.5-5.1); Sodium 138 mmol/L (136-145); Total Protein,Serum 6.7 g/dl (6.3-8.2)
[2024-02-25 13:03] LABS: HCG,Quantitative < 2 mIU/ml (0-5.42)
== END 2024-02-25 23:59 | disposition home or self-care (01) ==
LOC: LAB 11:56
PROVIDERS: PCP Internal Medicine; Visit Provider Obstetrics & Gynecology
DX: E28.2 Polycystic ovarian syndrome (principal)
CPT/HCPCS: 36415; 80053; 84702; 85025

== ENCOUNTER 2024-02-27 06:58 | Day surgery (SDC) | payer BC, SELFPAY ==
[2024-02-26 09:49] VITALS: BMI 45.3
[2024-02-27] VITALS (10 sets, daily range): BP systolic 125–144; BP diastolic 76–104; PULSE 84–115; RESP 16–22; TEMP 36.3–36.7; O2SAT 94–100
[2024-02-27] MEDS: LACTATED RINGERS 1000ML 1,000 ML 25 ML IV (07:20)
--- NOTE | 2024-02-27 08:00 | EXP.ANES.CKL ---
[facility] Disclaimer: The information contained in this section may have been updated after the patient was seen, as this information can be updated by other users. Medical History History of COVID-19 History of gastroesophageal reflux (GERD) Gallbladder disease Allergies Anxiety Surgical History History of laparoscopic cholecystectomy [place] teeth removed History of placement of ear tubes Hx of adenoidectomy Hx of tonsillectomy Hx of section Family History Other TIMBO (obstructive sleep apnea) Social History (Updated 02/27/24 @ 07:10 by Odalys Casey RN) Smoking Status: Never smoker alcohol intake: never substance use type: denies use current occupational status: employed Travel in the last 8 weeks: None household members: family housing: house [facility] Anesthesia Checklist Patient Identification Patient Identification: Arm Band Structural Data Admitted From: Home Planned Operative Procedure/s: Hysteroscopy, D&C, Myosure Ablation Consent for Planned Operative Procedure(s) Verified: Yes Verified Documents: Surgical Consent and History and Physical NPO Status Verified Time NPO: 00:00 Additional verifications Anesthesia Reactions: Yes (nausea) Hx Blood Transfusions: No Blood Transfusion Reaction: No Airway Assessment Mallampati Score:: Class II C-Spine Mobility Assessed: Yes TMJ Mobility Assessed: Yes Dentition: Good Dentition Neurological Assessment Level of Consciousness: Awake, Alert and Appropriate Anesthesia Plan Anesthesia Risk discussed: Yes Anesthesia Plan: Verified ASA Class: III Anesthesia Type: General
[2024-02-27] MEDS: SODIUM CHLORIDE IRRIG SOLUTION 3,000 ML 25 ML IR (09:01)
--- NOTE | 2024-02-27 09:37 | P.OP_ITS ---
Date of procedure: 02/27/24 Pre-op Diagnosis:: 1. Secondary Infertility 2. Irregular bleeding 3. Suspected endometrial polyp Post-op Diagnosis:: 1. Secondary Infertility 2. Irregular bleeding 3. Suspected endometrial polyp Procedure performed:: Hysteroscopy, dilation, and MyoSure curettage with polypectomy Surgeon:: Susan Knapp DO [employer]:: Rajeev Chacon Anesthesia: GETA Estimated blood loss (mL): 10 Operative findings:: Findings: -EUA revealed an 10-week anteverted uterus with regular contour. no significant prolapse or support defects noted. -Hysteroscopy revealed two endometrial polyps. two were almost smooth with the uterine wall but occluding the right tubal ostia. Polyps were able to be removed in their entirety and the tubal ostia visualized. Operative note:: The patient was taken back to the OR where general anesthesia was obtained.? She was placed in the dorsal lithotomy position using yellow fin stirrups and sterilely prepped and draped in the usual fashion.? An in and out catheter was used to drain her bladder.? A timeout was performed.? A weighted speculum was used to visualize this cervix, a single-tooth tenaculum was applied to the anterior lip of the cervix. The cervix was only slightly dilated to allow entry to the ectocervix and hydrodisection was used to get the scope the rest of the way into the cavity. The hysterscope was inserted and a polyp was noted as described above. Images were obtained of the cavity. The tubal ostia was obscured by the polyp as described above.? Decision was made to proceed with the MyoSure for polypectomy. Device set up, primed and zeroed. The device was used to resect the outer edge of the polyp until the complete polyp was removed down to the base. At the conclusion of the procedure there was a fluid deficit of 45mLs. Total myosure cutting time was 60seconds. Following complete removal of the polyps the MyoSure hysteroscope was removed.? The single-tooth tenaculum was removed and there was a small amount of bleeding at the tenaculum site. A ring forcep was applied and this made the area hemostatic. Further inspection?revealed complete hemostasis. All instruments were removed from the vagina.? All counts were correct, per nursing.? This concluded the procedure, the patient was awakened from anesthesia, and transferred to the PACU in stable condition. Condition: stable Disposition: same day Specimens:: Endometrial polyp Complications:: None
--- NOTE | 2024-02-27 09:54 | P.PNANES_ITS ---
[facility] Anesthesia Record Part I Anesthesia Record I Intake, IV Amount: 800 Hydration: Adequate Estimated blood loss (mL): 10 Urine output (mL): 0 Blood Products used (#): none Blood Pressure: 143/103 SaO2: 95 Pulse Rate: 115 Airway Patency: Patent Respiratory Rate: 22 Temperature: 97.3 F Patient is:: Drowsy and Stable Stable to PACU at:: 09:35
[2024-02-27] MEDS: MORPHINE 2MG/ML SYRINGE 1 MG IV (10:00)
--- NOTE | 2024-02-27 11:18 | EXP.ANES.II ---
[facility] Anesthesia Record Part II Anesthesia Record Part II Discharge Time: 10:05 Destination: Surgical Day Care (OP Surgery) PACU nurse assessment reviewed?: Yes Patient Condition:: Good Anesthesia Complications:: None Swallowing reflex intact?: Yes Airway Patency: Patent Cyanosis?: No Blood Pressure: 131/87 SaO2: 100 Respiratory Rate: 18 Pulse Rate: 103 Temperature: 97.5 F Mental Status: Alert & Oriented Pain level:: 0 Nausea and/or vomitting:: None Intake, IV Amount: 0 Hydration: Adequate
== END 2024-02-27 10:40 | disposition home or self-care (01) ==
PROVIDERS: PCP Internal Medicine; Visit Provider Obstetrics & Gynecology
PROC: (CPT 58558; principal; 2024-02-27 08:30)
DX: N97.2 Female infertility of uterine origin (principal); N84.0 Polyp of corpus uteri; N93.9 Abnormal uterine and vaginal bleeding, unspecified
CPT/HCPCS: 58558; J1100; J2250; J2270; J2405; J2704; J3010; J7120

== ENCOUNTER 2024-03-22 14:22 | Outpatient (CLI) | payer BC, SELFPAY ==
[2024-03-24 13:21] LABS: FSH 6.7 mIU/mL (.); LH 7.5 mIU/mL (.); Progesterone <0.1 ng/mL (.)
== END 2024-03-22 23:59 | disposition home or self-care (01) ==
LOC: LAB 14:23
PROVIDERS: PCP Internal Medicine; Visit Provider Obstetrics & Gynecology
DX: E28.2 Polycystic ovarian syndrome (principal)
CPT/HCPCS: 36415; 83001; 83002; 84144

== ENCOUNTER 2024-04-01 15:38 | Outpatient (CLI) | payer BC, SELFPAY ==
--- NOTE | 2024-04-01 15:38 | US_ITS ---
PROCEDURE: US TRANSVAGINAL CLINICAL INDICATION: pcos, desire for , follicle scan COMPARISON: US US TRANSVAGINAL from 10/29/2023 US US TRANSVAGINAL from 12/26/2023 US US TRANSVAGINAL from 01/27/2024 FINDINGS: Transvaginal sonographic images of the pelvis were obtained. UTERUS: 7.9 cm x 4cmx 3.5cm midline with a combined endometrial thickness of 8mm. LEFT OVARY: 3.0cmx4.1cmx2.3cm with a volume of 14.7ml. Difficult to visualize RIGHT OVARY: 3.9 cmx 3.2cmx3.3cm with a volume of 21.4ml. Follicle 1. 2.4 cm Follicle 2. 2.07 cm Follicle 3. 1.76 cm Follicle 4. 0.66 cm Both ovaries are seen and appear normal. Doppler flow to both ovaries are seen. There is no fluid in the cul-de-sac. IMPRESSION: 1. Midline uterus normal in shape and size. The endometrium measures 8 mm. 2. The left ovary is not well visualized but appears normal. No follicles were seen. 3. The right ovary is seen and contains 4 follicles. 4. No fluid in the cul-de-sac. Dictated by: Magan Castillo MD 04/02/2024 09:55 Magan Castillo MD in [facility] 04/02/2024 09:55
== END 2024-04-01 23:59 | disposition home or self-care (01) ==
LOC: RAD 15:38
PROVIDERS: PCP Internal Medicine; Visit Provider Obstetrics & Gynecology
DX: E28.2 Polycystic ovarian syndrome (principal); Z31.9 Encounter for procreative management, unspecified
CPT/HCPCS: 76830

== ENCOUNTER 2024-04-09 15:27 | Outpatient (CLI) | payer BC, SELFPAY ==
[2024-04-11 08:10] LABS: Progesterone 21.9 ng/mL (.)
== END 2024-04-09 23:59 | disposition home or self-care (01) ==
LOC: LAB 15:28
PROVIDERS: PCP Internal Medicine; Visit Provider Obstetrics & Gynecology
DX: E28.2 Polycystic ovarian syndrome (principal)
CPT/HCPCS: 36415; 84144

== ENCOUNTER 2024-04-30 12:47 | Outpatient (CLI) | payer BC, SELFPAY ==
--- NOTE | 2024-04-30 12:54 | US_ITS ---
PROCEDURE: US TRANSVAGINAL CLINICAL INDICATION: Follicle Scan COMPARISON: RF FL HYSTEROSALPINGOGRAPHY from 10/24/2023 US US TRANSVAGINAL from 10/29/2023 US US TRANSVAGINAL from 12/26/2023 US US TRANSVAGINAL from 01/27/2024 US US TRANSVAGINAL from 04/01/2024 FINDINGS: Transvaginal sonographic images of the pelvis were obtained. UTERUS: 7.9 cm x 3.7 cmx 3.7 cm anteverted with a combined endometrial thickness of 5.7mm. The endometrium is homogeneous. A scar is seen. There are 2 small nabothian cysts in the cervix. The largest measures 3.9 mm. LEFT OVARY: 3.8 cmx3.2 cmx2.6cm with a volume of 16ml. Follicle 1. 2.3 cm Follicle 2. 0.9 cm RIGHT OVARY: 2.6 cmx 3.7 cmx0.6 cm with a volume of 18ml. Follicle 1. Hemorrhagic appearing 1.5 cm x 1.7 cm x 1.7 cm Follicle 2. Hemorrhagic appearing 1.4 cm x 1.0 cm x 1.2 cm Follicle 3. Corpus luteum appearing measuring 2.1 cm x 1.4 cm x 1.7 cm Follicle 4. 2.4 cm x 1.7 cm x 1.2 cm Both ovaries are seen and appear normal. Doppler flow to both ovaries are seen. There is no fluid in the cul-de-sac. IMPRESSION: 1. Anteverted uterus normal in shape and size. The endometrium is thin and homogeneous. 2. The left ovary has 2 normal appearing follicles measuring 2.3 cm and 0.9 cm. 3. The right ovary has 3 solid-appearing areas that could be hemorrhagic and or corpus lutea. There is a normal appearing follicle measuring 2.4 cm. 4. There is no fluid in the cul-de-sac. Dictated by: Magan Castillo MD 05/01/2024 08:32 Magan Castillo MD in [facility] 05/01/2024 08:32
== END 2024-04-30 23:59 | disposition home or self-care (01) ==
PROVIDERS: PCP Internal Medicine; Visit Provider Obstetrics & Gynecology
DX: N97.9 Female infertility, unspecified (principal)
CPT/HCPCS: 76830

== ENCOUNTER 2024-06-11 16:31 | Outpatient (CLI) | payer BC, SELFPAY ==
[2024-06-12 08:51] LABS: Progesterone 23.7 ng/mL (.)
== END 2024-06-11 23:59 | disposition home or self-care (01) ==
LOC: LAB 16:32
PROVIDERS: PCP Internal Medicine; Visit Provider Obstetrics & Gynecology
DX: N97.9 Female infertility, unspecified (principal)
CPT/HCPCS: 36415; 84144

== ENCOUNTER 2024-10-08 09:55 | Outpatient (CLI) | payer BC, SELFPAY ==
[2024-10-08 10:45] LABS: Basophils # 0.1 K/mm3 (0-0.2); Eosinophils # 0.1 K/mm3 (0.0-0.4); Eosinophils % 2.5 % (0.1-12.0); Hematocrit 37.1 % (37.0-47.0); Hemoglobin 12.6 g/dL (12.2-16.2); Lymphocytes # 1.5 K/mm3 (0.7-4.5); Lymphocytes % 31.2 % (10-50); Mean Corpuscular Hemoglobin 29.6 pg (27.0-31.2); Mean Corpuscular Volume 87.3 fl (81-99); Mean Platelet Volume 10.1 fl (7.4-10.4); Monocytes # 0.4 K/mm3 (0.1-1.0); Monocytes % 7.9 % (1.7-9.3); Neutrophils # 2.8 K/mm3 (1.8-7.8); Neutrophils % 57.2 % (37.0-80.0); Platelet Count 230 K/mm3 (142-424); Red Blood Count 4.25 M/mm3 (4.20-5.40); Red Cell Distribution Width 13.5 % (11.5-17.5); White Blood Count 4.8 K/mm3 (4.8-10.8)
[2024-10-08 11:19] LABS: Albumin Level 4.2 g/dl (3.5-5.0); Chloride 110 mmol/L (98-107); Potassium 4.2 mmoL/L (3.5-5.1); Sodium 138 mmol/L (136-145)
[2024-10-08 11:21] LABS: Blood Urea Nitrogen 14 mg/dl (7-17); Estimated Glomerular Filt Rate 96 ml/min (>60); GFR (African American) 117 ML/MIN (>60)
[2024-10-08 11:22] LABS: Alanine Aminotransferase 26 U/L (12-78); Albumin/Globulin Ratio 1.6 (1.1-1.8); Alkaline Phosphatase 76 U/L (38-126); Anion Gap 10.2 mEq/L (5-15); Aspartate Amino Transferase 24 U/L (14-36); Bilirubin,Total 0.5 mg/dl (0.2-1.3); Calcium 8.7 mg/dl (8.4-10.2); Carbon Dioxide 22 mmol/L (22.0-30.0); Chol/HDL Ratio 4.6 (1-3.5); Cholesterol 165 mg/dl (140-200); Globulin 2.6 g/dL (1.3-3.2); Glucose 89 mg/dl (74-100); HDL Cholesterol 36 mg/dl (40-60); Total Protein,Serum 6.8 g/dl (6.3-8.2); Triglycerides 93 mg/dl (30-150); VLDL Cholesterol 19 mg/dL (0-40)
[2024-10-08 11:34] LABS: Direct LDL Cholesterol 112.42 mg/dL (100-129)
[2024-10-08 11:52] LABS: Thyroid Stimulating Hormone 3.63 uIU/mL (0.465-4.68)
[2024-10-09 06:10] LABS: Prolactin 14.5 ng/mL (4.8-33.4)
[2024-10-10 11:23] LABS: Insulin Level Total 47.7 uIU/mL (2.6-24.9)
== END 2024-10-08 23:59 | disposition home or self-care (01) ==
LOC: LAB 09:56
PROVIDERS: PCP Internal Medicine; Visit Provider Obstetrics & Gynecology
DX: R53.83 Other fatigue (principal)
CPT/HCPCS: 36415; 80053; 80061; 83036; 83525; 84146; 84443; 85025

== ENCOUNTER 2024-11-05 15:29 | Outpatient (CLI) | payer BC, SELFPAY ==
--- NOTE | 2024-11-05 15:30 | US_ITS ---
PROCEDURE: US TRANSVAGINAL CLINICAL INDICATION: IUD placement COMPARISON: US US TRANSVAGINAL from 04/01/2024 US US TRANSVAGINAL from 04/30/2024 FINDINGS: Transvaginal sonographic images of the pelvis were obtained. UTERUS: 8.8 cm x 4.7 cmx 5.0cm anteverted with a combined endometrial thickness of 7.7mm. A scar is seen. There is an IUD within the uterine cavity in the correct position. LEFT OVARY: 2.9 cmx2 1.9 cmx1.9cm with a volume of 5.5ml. RIGHT OVARY: 2.3cmx 1.4cmx1.4cm with a volume of 2.3ml. Both ovaries are seen and appear normal. Doppler flow to both ovaries are seen. There is no fluid in the cul-de-sac. IMPRESSION: 1. Anteverted uterus normal in shape and size. 2. There is an IUD within the uterine cavity in the correct position. 3. Both ovaries are difficult to visualize but appear normal. 4. No fluid in the cul-de-sac. Dictated by: Magan Castillo MD 11/05/2024 20:56 Magan Castillo MD in [place] 11/05/2024 20:56
--- NOTE | 2024-11-05 15:33 | US_ITS ---
PROCEDURE INFORMATION: Exam: US Left Breast, Complete Exam date and time: 11/05/2024 3:42 PM Age: 33 years old Clinical indication: Concern for left breast lump. TECHNIQUE: Imaging protocol: Complete ultrasound of all four quadrants of the left breast and the retroareolar regions, including ultrasound of the axilla when performed. COMPARISON: No relevant prior studies available. FINDINGS: ULTRASOUND: Breast ultrasound findings: Left sonography, all 4 quadrants, retroareolar and axilla. At the palpable concern at 9 o'clock 1 cm from the nipple, oval hypoechoic avascular mass measuring 0.5 x 0.4 cm, probably benign complicated cyst. Scattered similar appearing probable complicated cyst with thin avascular echoes and or low-level internal echoes, at 2 o'clock 5 cm from the nipple measuring 0.6 x 0.4 cm; at 3 o'clock 7 cm from the nipple measuring 0.4 x 0.4 x 0.3 cm; and at 4 o'clock 7 cm from the nipple measuring 0.3 x 0.4 x 0.3 cm. Sonographically unremarkable axillary lymph node. IMPRESSION: Palpable concern corresponds to a probably benign complicated cyst at 9 o'clock, with similar scattered masses at 2, 3, and 4 o'clock. Suggest six-month follow-up left sonography unless otherwise clinically indicated. Further evaluation of a palpable abnormality should be based on clinical grounds regardless of radiographic findings or lack thereof. ASSESSMENT: BI-RADS Category 3: Probably benign.
== END 2024-11-05 23:59 | disposition home or self-care (01) ==
LOC: RAD 15:30
PROVIDERS: PCP Internal Medicine; Visit Provider Obstetrics & Gynecology
DX: N63.25 Unspecified lump in the left breast, overlapping quadrants (principal); Z30.430 Encounter for insertion of intrauterine contraceptive device
CPT/HCPCS: 76641; 76830

== ENCOUNTER 2025-01-09 15:31 | Emergency (ER) | payer BC, SELFPAY ==
[2025-01-09 15:44] VITALS: BP 127/86; PULSE 96; RESP 18; TEMP 37; O2SAT 95; BMI 40.6
--- NOTE | 2025-01-09 15:58 | HMH.EDGENADL ---
Discharge Plan Disposition Patient Disposition: Home, Self-Care Condition: Good Prescriptions Prescriptions: New ondansetron 4 mg tablet,disintegrating 4 mg PO QID PRN (Reason: nausea and vomiting) Qty: 10 0RF No Action metformin 500 mg tablet extended release 24 hr 500 mg PO DAILY Qty: 60 3RF sertraline 100 mg tablet 100 mg PO DAILY Qty: 30 12RF Zepbound 5 mg/0.5 mL pen injector 5 mg SQ WEEKLY Qty: 2.5 2RF cetirizine 10 MG capsule 10 mg PO DAILY Referrals Follow up/Referrals: Misbah Sanches MD [Primary Care Provider] - See instructions Activity Restrictions/Add. Instructions Additional Instructions/Restrictions: I recommend a brat diet which is bananas rice applesauce toast and other words bland diet to you tolerate it and then advance diet as tolerated. If you have any persistent new or worsening signs or symptoms please follow-up with your PCP or return to the ER. I have sent in some antinausea medicine to your pharmacy as well. Clinical Impressions Clinical Impression: Enteritis due to Rotavirus Instructions Patient Instructions: DI for Diarrhea and Traveler's Diarrhea -- Adult, DI for Diarrhea and Traveler's Diarrhea -- Child, DI for Nausea -- Adult, DI for Nausea -- Child Print Language Print Language: Syriac Discharge ED Provider: Darryl Lara Adult HPI <ANUPAMA Mederos - Last Filed: 01/09/25 20:28> General Chief complaint: Nausea/Vomiting/Diarrhea Stated complaint: Stomach Bug 48 hr can't keep anything down Time Seen by Provider: 01/09/25 15:58 Mode of Arrival: Ambulatory Source of Information: Patient Description of Symptoms (Recalled from ER Triage Doc. by RN): Pt states she has been vomiting and diarrhea for 48 hours. ABd cramps, headache, has had one event of feeling lightheaded. Took zofran 01/08/2025. History of Present Illness HPI narrative: Patient presents for evaluation of nausea vomiting diarrhea. Patient's states that she has had 48 hours of nausea vomiting and too numerous to count watery stools. She is having abdominal cramping but no abdominal pain focally chest pain shortness of breath fever chills hemoptysis hematochezia melena hematuria or dysuria. She is not able to tolerate oral intake Related Data Home Medications ?Medication ?Instructions ?Recorded ?Confirmed cetirizine 10 mg capsule 10 mg PO DAILY Allergy symptoms 08/09/19 12/03/24 Previous Rx's ?Medication ?Instructions ?Recorded metformin 500 mg tablet,extended 500 mg PO DAILY #60 tabs 10/08/24 release 24 hr sertraline 100 mg tablet 100 mg PO DAILY #30 tabs 10/08/24 tirzepatide (weight loss) 5 mg/0.5 5 mg (0.5 mL) SQ WEEKLY #2.5 mL 11/08/24 mL subcutaneous pen injector (Zepbound) ondansetron 4 mg disintegrating 4 mg PO QID PRN nausea and 01/09/25 tablet vomiting #10 tabs Allergies Allergy/AdvReac Type Severity Reaction Status Date / Time Sulfa (Sulfonamide Allergy Intermediate Hives Verified 12/03/24 14:19 Antibiotics) (SULFA (SULFONAMIDE ANTIBIOTICS)) [facility] <ANUPAMA Mederos - Last Filed: 01/09/25 20:28> [facility] Disclaimer: The information contained in this section may have been updated after the patient was seen, as this information can be updated by other users. Medical History Cyst of breast History of COVID-19 History of gastroesophageal reflux (GERD) Gallbladder disease Allergies Anxiety Surgical History History of laparoscopic cholecystectomy [place] teeth removed History of placement of ear tubes Hx of adenoidectomy Hx of tonsillectomy Hx of section Family History Other TIMBO (obstructive sleep apnea) Social History Smoking Status: Never smoker alcohol intake: never substance use type: denies use current occupational status: employed Travel in the last 8 weeks?: None household members: family housing: house Have you lived/traveled outside [place] in past 30 days?: No Contact w/someone who lives/traveled outside [place] past 30 days?: No Exposure to someone with infectious disease in past 14 days?: No Do you have a fever (greater than 100.4 F or 38 C)?: No Have you tested positive for COVID-19?: No Exposed to someone with COVID-19 in past 14 days?: No Do you have a sore throat?: No Do you have a cough?: No Do you have any weakness?: No Do you have any diarrhea?: Yes Are you experiencing any unusual bleeding?: No Do you have any muscle aches/pain?: No Do you have any abdominal pain?: Yes Are you experiencing loss of taste or smell?: No Other Medical History Have you received the Pneumonia Vaccine: No <ANUPAMA Mederos - Last Filed: 01/09/25 20:28> ROS Obtained: Yes Systems reviewed as appropriate & no additional complaints except as documented Physical Exam <ANUPAMA Mederos - Last Filed: 01/09/25 20:28> General General appearance: alert and in no apparent distress Respiratory Respiratory exam: Present normal lung sounds bilaterally Cardiovascular Cardiovascular exam: Present regular rate Neurological Exam Neurological exam: Present alert and oriented X3 Medical Decision Making <ANUPAMA Mederos - Last Filed: 01/09/25 20:28> Medical Records Medical records reviewed: Yes I reviewed the patient's medical records. Screening: Per USPSTF and CDC recommendations, given the prevalence of disease in our region, it is our hospital?s policy to screen for HIV and viral Hepatitis for all patients aged 18 and over and those with ongoing risk factors. Sadi Inquiry Pt receiving controlled substance: No Vital Signs: 01/09/25 15:44 01/09/25 18:29 Temperature 98.6 F 98 F Temperature Source Oral Oral Pulse Rate 89 Pulse Rate [Right] 96 H Respiratory Rate 18 16 Blood Pressure 159/67 H Blood Pressure [Right Arm] 127/86 Blood Pressure Mean [Right Arm] 99 Blood Pressure Source Automatic Cuff Blood Pressure Position Sitting 02 Sat by Pulse Oximetry 95 Oxygen Delivery Method Room Air Room Air Lab Data Lab results reviewed: Yes I reviewed the patient's lab results. Lab Results 01/09/25 15:52: Urine Color Yellow, Urine Appearance Clear, Urine pH 6.0, Ur Specific [place] >= 1.030, Urine Protein 2+ A, Urine Glucose (UA) Negative, Urine Ketones 1+, Urine Blood 3+ A, Urine Nitrate Negative, Urine Bilirubin Negative, Urine Urobilinogen 0.2, Ur Leukocyte Esterase Negative, Urine RBC 10-20, Urine WBC Occasional, Ur Squamous Epith Cells 10-20, Urine Bacteria 1+ 01/09/25 16:14: Stl C. cayetanensis PCR Not detected, Stool Rotavirus (PCR) Detected A, Stl Adenov F 40/41 PCR Not detected, Stool Astrovirus (PCR) Not detected, Stool Campylobacter PCR Not detected, Stl C.difficile Tox PCR Not detected, Stool Cryptosporidium PCR Not detected, Stl E.coli Shiga Tox PCR Not detected, Stool E coli O157 PCR Not detected, Stl Enterotoxigenic E PCR Not detected, Stool EPEC (PCR) Not detected, Stool EAEC (PCR) Not detected, Stl E. histolytica PCR Not detected, Stool Giardia Lamblia PCR Not detected, Stool Salmonella PCR Not detected, Stool Sapovirus (PCR) Not detected, Stl P. shigelloides PCR Not detected, Stl Shigella/EIEC PCR Not detected, St Y.enterocolitica PCR Not detected, Stool Vibrio (PCR) Not detected, Stl Vibrio cholerae PCR Not detected, Stl Norovirus GI/GII PCR Not detected 01/09/25 16:32: WBC 5.3, RBC 5.28, Hgb 15.7, Hct 47.0, MCV 89.0, MCH 29.7, MCHC 33.4, RDW 13.5, Plt Count 301, MPV 9.8, Neut % (Auto) 74.3, Lymph % (Auto) 15.2, [place] % (Auto) 9.1, Eos % (Auto) 0.6, Baso % (Auto) 0.4, Neut # (Auto) 3.9, Lymph # (Auto) 0.8, [place] # (Auto) 0.5, Eos # (Auto) 0.0, Baso # (Auto) 0.0, Sodium 140, Potassium 3.5, Chloride 108 H, Carbon Dioxide 19 L, Anion Gap 16.5 H, BUN 18 H, Creatinine 0.90, Estimated Creat Clear 136, Estimated GFR 72, Est GFR ( Amer) 87, Glucose 109 H, Calcium 9.1, Magnesium 2.2, Total Bilirubin 0.7, AST 37 H, ALT 32, Alkaline Phosphatase 70, Total Protein 8.2, Albumin 5.1 H, Globulin 3.1, Albumin/Globulin Ratio 1.6, Procalcitonin 0.168 01/09/25 16:32 01/09/25 16:32 Orders (Tests/Meds): ED MEDICATIONS Discontinued Medications Generic Name Dose Route Start Last Admin Trade Name Stef PRN Reason Stop Dose Admin Sodium Chloride 1,000 mls @ 999 mls/hr 01/09/25 16:11 01/09/25 16:31 Sod Chlor 0.9% 1000ml Bag IV 01/09/25 17:11 999 mls/hr .Q1H1M ONE Administration Sodium Chloride 1,000 mls @ 999 mls/hr 01/09/25 17:24 01/09/25 17:38 Sod Chlor 0.9% 1000ml Bag IV 01/09/25 18:24 999 mls/hr .Q1H1M ONE Administration Ondansetron HCl 4 mg 01/09/25 16:11 01/09/25 16:30 Ondansetron 4mg/2ml Vial IV 01/09/25 16:12 4 mg ONCE ONE Administration ORDERS Category Date Time Status CBC w/Auto Diff [Complete Blood Count Auto Diff] Stat Lab 01/09/25 16:32 Completed CMP [Comprehensive Metabolic Panel] Stat Lab 01/09/25 16:32 Completed Diarrhea 23 Panel, PCR Stat Lab 01/09/25 16:14 Completed Magnesium Stat Lab 01/09/25 16:32 Completed Procalcitonin Stat Lab 01/09/25 16:32 Completed Urinalysis and Microscopic Stat Lab 01/09/25 15:52 Completed Medical Decision Narrative: In summary patient is a 34-year-old female who presents to the emergency department for evaluation of 48 hours of nausea vomiting diarrhea. Patient is hemodynamically stable upon arrival, afebrile. Physical exam is remarkable for no abdominal tenderness on exam abdomen soft no rebound or guarding no rigidity but hyperactive bowel sounds however.. Differential diagnosis includes bacterial or viral gastroenteritis. Initial workup will be conducted with hematologic labs diarrhea panel. I did consider CT scan abdomen pelvis however patient has no red flags to suggest bowel obstruction or other etiology thus deferred for now. Initial interventions include crystalloid bolus and Zofran. Initial workup reviewed by me shows her hematologic labs are nonactionable and her procalcitonin is 0.168 and diarrhea panel is positive for rotavirus. Upon repeat evaluation patient reported significant improvement in her constitutional symptoms and is able to tolerate oral intake without vomiting. Given this patient given instructions for supportive care and prescription for Zofran sent to her pharmacy and strict return precautions. <Darryl Lara MD - Last Filed: 01/09/25 23:35> Vital Signs: 01/09/25 15:44 01/09/25 18:29 Temperature 98.6 F 98 F Temperature Source Oral Oral Pulse Rate 89 Pulse Rate [Right] 96 H Respiratory Rate 18 16 Blood Pressure 159/67 H Blood Pressure [Right Arm] 127/86 Blood Pressure Mean [Right Arm] 99 Blood Pressure Source Automatic Cuff Blood Pressure Position Sitting 02 Sat by Pulse Oximetry 95 Oxygen Delivery Method Room Air Room Air Lab Data Lab Results 01/09/25 15:52: Urine Color Yellow, Urine Appearance Clear, Urine pH 6.0, Ur Specific [place] >= 1.030, Urine Protein 2+ A, Urine Glucose (UA) Negative, Urine Ketones 1+, Urine Blood 3+ A, Urine Nitrate Negative, Urine Bilirubin Negative, Urine Urobilinogen 0.2, Ur Leukocyte Esterase Negative, Urine RBC 10-20, Urine WBC Occasional, Ur Squamous Epith Cells 10-20, Urine Bacteria 1+ 01/09/25 16:14: Stl C. cayetanensis PCR Not detected, Stool Rotavirus (PCR) Detected A, Stl Adenov F 40/41 PCR Not detected, Stool Astrovirus (PCR) Not detected, Stool Campylobacter PCR Not detected, Stl C.difficile Tox PCR Not detected, Stool Cryptosporidium PCR Not detected, Stl E.coli Shiga Tox PCR Not detected, Stool E coli O157 PCR Not detected, Stl Enterotoxigenic E PCR Not detected, Stool EPEC (PCR) Not detected, Stool EAEC (PCR) Not detected, Stl E. histolytica PCR Not detected, Stool Giardia Lamblia PCR Not detected, Stool Salmonella PCR Not detected, Stool Sapovirus (PCR) Not detected, Stl P. shigelloides PCR Not detected, Stl Shigella/EIEC PCR Not detected, St Y.enterocolitica PCR Not detected, Stool Vibrio (PCR) Not detected, Stl Vibrio cholerae PCR Not detected, Stl Norovirus GI/GII PCR Not detected 01/09/25 16:32: WBC 5.3, RBC 5.28, Hgb 15.7, Hct 47.0, MCV 89.0, MCH 29.7, MCHC 33.4, RDW 13.5, Plt Count 301, MPV 9.8, Neut % (Auto) 74.3, Lymph % (Auto) 15.2, [place] % (Auto) 9.1, Eos % (Auto) 0.6, Baso % (Auto) 0.4, Neut # (Auto) 3.9, Lymph # (Auto) 0.8, [place] # (Auto) 0.5, Eos # (Auto) 0.0, Baso # (Auto) 0.0, Sodium 140, Potassium 3.5, Chloride 108 H, Carbon Dioxide 19 L, Anion Gap 16.5 H, BUN 18 H, Creatinine 0.90, Estimated Creat Clear 136, Estimated GFR 72, Est GFR ( Amer) 87, Glucose 109 H, Calcium 9.1, Magnesium 2.2, Total Bilirubin 0.7, AST 37 H, ALT 32, Alkaline Phosphatase 70, Total Protein 8.2, Albumin 5.1 H, Globulin 3.1, Albumin/Globulin Ratio 1.6, Procalcitonin 0.168 Orders (Tests/Meds): ED MEDICATIONS Discontinued Medications Generic Name Dose Route Start Last Admin Trade Name Freq PRN Reason Stop Dose Admin Sodium Chloride 1,000 mls @ 999 mls/hr 01/09/25 16:11 01/09/25 16:31 Sod Chlor 0.9% 1000ml Bag IV 01/09/25 17:11 999 mls/hr .Q1H1M ONE Administration Sodium Chloride 1,000 mls @ 999 mls/hr 01/09/25 17:24 01/09/25 17:38 Sod Chlor 0.9% 1000ml Bag IV 01/09/25 18:24 999 mls/hr .Q1H1M ONE Administration Ondansetron HCl 4 mg 01/09/25 16:11 01/09/25 16:30 Ondansetron 4mg/2ml Vial IV 01/09/25 16:12 4 mg ONCE ONE Administration ORDERS Category Date Time Status CBC w/Auto Diff [Complete Blood Count Auto Diff] Stat Lab 01/09/25 16:32 Completed CMP [Comprehensive Metabolic Panel] Stat Lab 01/09/25 16:32 Completed Diarrhea 23 Panel, PCR Stat Lab 01/09/25 16:14 Completed Magnesium Stat Lab 01/09/25 16:32 Completed Procalcitonin Stat Lab 01/09/25 16:32 Completed Urinalysis and Microscopic Stat Lab 01/09/25 15:52 Completed Medical Decision Narrative: In summary patient is a 34-year-old female who presents to the emergency department for evaluation of 48 hours of nausea vomiting diarrhea. Patient is hemodynamically stable upon arrival, afebrile. Physical exam is remarkable for no abdominal tenderness on exam abdomen soft no rebound or guarding no rigidity but hyperactive bowel sounds however.. Differential diagnosis includes bacterial or viral gastroenteritis. Initial workup will be conducted with hematologic labs diarrhea panel. I did consider CT scan abdomen pelvis however patient has no red flags to suggest bowel obstruction or other etiology thus deferred for now. Initial interventions include crystalloid bolus and Zofran. Initial workup reviewed by me shows her hematologic labs are nonactionable and her procalcitonin is 0.168 and diarrhea panel is positive for rotavirus. Upon repeat evaluation patient reported significant improvement in her constitutional symptoms and is able to tolerate oral intake without vomiting. Given this patient given instructions for supportive care and prescription for Zofran sent to her pharmacy and strict return precautions. I was consulted by the JENNIFER, and we discussed the complexity of the problems being addressed.I approved the treatment and management plan for this patient?s care in the Emergency Department, thus performing a substantive portion of the medical decision making.Signed, Darryl Lara MD [facility] <ANUPAMA Mederos - Last Filed: 01/09/25 20:28> Critical Care Time Critical Care Time: No
[2025-01-09 16:01] LABS: Microscopic, Urine URINE MICROSCOPIC (MICROSCOPIC)
[2025-01-09 16:04] LABS: Appearance,Urine CLEAR (Clear); Blood, Urine 3+ (Negative); Color,Urine YELLOW (Yellow); Glucose,Urine (UA) Negative (Negative); Ketones,Urine 1+ (Negative); Leukocyte Esterase,Urine Negative (Negative); Nitrate,Urine Negative (Negative); Protein,Urine 2+ (Negative); Specific Gravity, Urine >= 1.030 (1.005-1.030); Urobilinogen,Urine 0.2 EU/dl (0.2)
--- OUTSIDE RECORDS SUMMARY | 2025-01-09 16:08 | XMS_ITS | Data Portability ---
Author Organization SOFIA JENNIFER Smith [facility] Address [address] [place] [address] Care Team Providers Care [employer] Name Role Phone MISBAH BLANCHARD Sherry Primary Care Provider [phone] Assessment No assessment recorded. Plan of Treatment Reminders Order Date Submit Date Provider Last Modified By Organization Details Last Modified Time Details Appointments None recorded. Lab None recorded. Referral None recorded. Procedures None recorded. Surgeries None recorded. Imaging None recorded. Medication Orders azelastin e 137 mcg (0.1 %) nasal spray 2020 021 [facility], [address] [place], [address], 1 09:49:21 Xhance 93 mcg/actua tion breath activated aerosol 2019 020 INTERFACE [facility], [address], [address], [place], [address], 0 10:08:24 Augmentin 875 mg-125 mg tablet [address] [facility], [address] [place], [address], 0 09:08:17 Ciprodex 0.3 %-0.1 % ear drops,robert pension [address] [facility], [address] [place], [address], 0 09:08:20 Patient TargetsNo targets recorded. Patient Instructions Encounter Date Encounter Id Patient Instructions Last Modified By Organization Details Last Modified Time 03/22/2020 [id number] ear infection (otitis media): care instructions [email or web address] Not available 03/22/2020 10:05:19 Ms Dejesus has a long HO ETD. She has a retrained left T-tube, that appears to still be functioning. Thick mucoid effusion effusion suctioned out today. Will start on ciprodex and augmentin. Right ear looks OK, normal right hearing and type Ad tymp on audio. Would observe for now. Start xhance for ETD, cont cetirizine. Discussed may be a good candidate in future for balloon eustachiontubopla sty. She would like to consider this. RTC 2-3 mn. [email or web address] Not available 03/22/2020 10:04:23 05/24/2020 [id number] Ms Dejesus acute otitis media and chronic bilateral eustachian tube dysfunction. Her ear drainage appeared to have resolved with the Augmentin and Ciprodex drops. Ears look dry today. T-tube remains in place in the left tympanic membrane and is patent. Overall she is improved on the cetirizine and xhance nasal spray. Her allergies have been better not flared up this fall like they normally do, and the pressure sensation in her ears has got better as well. We discussed placing a tube on the right side for the pressure sensation, however she continues to have the similar feeling on the left side even with a in place and patent tube, as such I be reluctant to place tube on the right some not sure really completely help with her symptoms. She is in agreement with this. We also discussed repeat allergy testing and potentially getting her back on either shots are sublingual. She is going to think on this and let us know. Otherwise plan to check back in 6 months. [email or web address] Not available 05/24/2020 11:07:44 05/16/2021 [id number] 30-year-old female here for follow-up on her ears. Left side with a T-tube in place has been doing well. She had a cerumen plug which I was able to remove today which helped with some of her aural fullness on this side. Otherwise no evidence of drainage or infection on the left. Had some recent right ear issues following an RSV infection. Story is consistent with an acute otitis media with rupture. Fortunately the eardrum appears to have since healed over. She has significant retraction and negative pressure and likely a mild serous effusion associated. Thankfully an audiogram she does not have any significant hearing loss associated with these physical exam findings. Based on this, and the fact that she feels like things have been improving in the right ear the last couple of days we will plan to observe for now. Continue with her Zyrtec, XHANCE twice a day, and add azelastine to further cover the eustachian tube. We will plan to check back in 2 to 3 months. If continuing to have issues on the right or if they get worse again before then we discussed proceeding with a right sided tube placement. [email or web address] Not available 05/16/2021 10:06:58 Reason for Referral None Reported. Results Created Date Observation Date Name Description Value Unit Range Abnormal Flag Note LastModifiedBy Organization Detail LastModifiedTime 03/22/20 20 03/22/2020 audio gram No observ ation record ed. BARCODE Not Available 2019 12:56:31 05/17/20 21 05/16/2021 audio gram No observ ation record ed. BARCODE Not Available 2020 14:43:10 Result Notes None recorded. Problems Name Problem SNOMED Code Status Onset Date Resolution Date Notes Provider Name and Address Organization Details Recorded Time Eustachia n tube disorder 36484517 Active 2014 From Automated Load;Provi edith: Kedar Rich III;St atus: Active Not Available [facility] 6 04:39:16 Perennial allergic rhinitis 096848898 Active 2014 From Automated Load;Provi edith: Kedar Rich III;St atus: Active Not Available [facility] 6 04:39:16 Headache disorder 157858245 Active 2014 From Automated Load;Provi edith: Kedar Rich III;St atus: Active Not Available [facility] 6 04:39:17 Hypertrop hy of nasal turbinate s 36308813 Active 2014 From Automated Load;Provi edith: Kedar Rich III; atus: Active Not Available [facility] 6 04:39:17 Problem Notes None recorded. Procedures Surgical History Date Name Laterality Status Provider Name and Address Organization Details Recorded Time 1 Tympanogram completed PAULINO KERR, [facility]A [address] [place], [address], [facility] 05/16/2021 08:49:48 1 Audiogram completed PAULINO KERR, CCC-A [address] [place], [address], [facility] 05/16/2021 08:49:46 1 Binocular Microscopy completed JENNY SILVER MD [address] [place], [address], [facility] 05/16/2021 08:20:09 0 Tympanogram completed PAULINO ROBERTSON [address] [place], [address], [facility] 03/22/2020 09:53:25 0 Audiogram completed PAULINO ROBERTSON [address] [place], [address], [facility] 03/22/2020 09:53:23 0 Binocular Microscopy completed JENNY SILVER MD [address] [place] [address], [address], [facility] 03/22/2020 09:45:46 delivery completed [facility] 03/22/2020 09:13:07 myringotomy and insertion of tympanic ventilation tube completed [facility] 03/22/2020 09:13:29 Remove tonsils and adenoids completed [facility] 03/22/2020 09:13:46 [place] Teeth Extraction completed [facility] 03/22/2020 09:13:56 Imaging Results Imaging Date Name Status LastModified by Organiz ation Details LastModified Time 03/22/2020 audiogram completed [facility] Information no t available 03/22/2020 12:56:31 05/16/2021 audiogram completed [facility] Information no t available 05/17/2021 14:43:10 Procedure Notes None recorded. Medical Equipment None Reported. Allergies Allergen ID Allergen Name Allergen Category Reaction Reaction Severity Criticality Documentation Date Start Date Code Code System Note Provider Name and Address Organization Details Recorded Time 658770 Substance with sulfonami de structure and antibacte rial mechanism of action (substanc e) medicatio n Not available Not available Not available 03/22/2020 47180 8003 [facility]ED [facility] 0 09:11:18 Medications Name Sig Start Date Stop Date Status Note LastModified by Organization Details LastModified Time eq sinus & congestio n 30mg tab TAKE 1 TO 2 TABLETS BY MOUTH THREE TIMES DAILY FOR CONGESTI ON FOR 7 DAYS active Not Available Not Available No t Available Singulair 10 mg tablet Daily 03/22 completed Frequenc y: daily;Me dication Descript ion: monteluk ast; Dosage:1 ; Route:or al; refills: 5; Quantity :30 tablet Not Available Not Available Not Available venlafaxi ne ER 75 mg capsule,e xtended release 24 hr 03/22 completed Medicati on Descript ion: venlafax ine; Route:or al; refills: 0 Not Available Not Available Not Available ofloxacin 0.3 % eye drops 03/22 completed Not Available Not Available Not Available phenazopy ridine 200 mg tablet active Not Available Not Available Not Available ondansetr on HCl 4 mg tablet 03/22 completed Not Available Not Available Not Available sertralin e 100 mg tablet active Not Available Not Available Not Available ciproflox acin 500 mg tablet active Not Available Not Available No t Available meloxicam 7.5 mg tablet TAKE 1 TABLET BY MOUTH ONCE DAILY active Not Available Not Available No t Available ofloxacin 0.3 % ear drops 03/22 completed Not Available Not Available Not Available azelastin e 137 mcg (0.1 %) nasal spray USE 1 SPRAY(S) IN EACH NOSTRIL TWICE DAILY active Not Available Not Available No t Available brompheni ramine-ps eudoephed rine-DM 2 mg-30 mg-10 mg/5 mL oral syrup TAKE 10 ML BY MOUTH EVERY 4 TO 6 HOURS NEEDED FOR SINUS SYMPTOMS 03/22 completed Not Available Not Available Not Available ondansetr on 4 mg disintegr ating tablet active Not Available Not Available Not Available cefdinir 300 mg capsule TAKE ONE CAPSULE BY MOUTH TWICE DAILY -- FINISH ALL MEDICINE -- active Not Available Not Available No t Available sertralin e 50 mg tablet active Not Available Not Available Not Available amoxicill in 875 mg-potass ium clavulana te 125 mg tablet Take 1 tablet every 12 hours by oral route for 10 days. 05/24 completed Not Available Not Available Not Available ciproflox acin 0.3 %-dexamet hasone 0.1 % ear drops,robert pension INSTILL 4 DROPS INTO LEFT EAR TWICE DAILY FOR 7 DAYS active Not Available Not Available No t Available Zyrtec active Not Available Not Availa ble Not Available Dymista 137 mcg-50 mcg/spray nasal spray Daily 03/22 completed Duration : 90 days;Ins truction s: each nostril; Frequenc y: daily;Me dication Descript ion: azelasti ne-fluti casone nasal; Dosage:2 sprays; Route:na michael; refills: 3; Quantity :3 spray Not Available Not Available Not Available Fabiola Fe 1.5/30 (28) 1.5 mg-30 mcg (21)/75 mg (7) tablet active Not Available Not Available Not Available Virtussin AC 10 mg-100 mg/5 mL oral liquid TAKE 2 TEASPOON FUL (10 ML) BY MOUTH EVERY 6 HOURS NEEDED FOR COUGH 03/22 completed Not Available Not Available Not Available Xhance 93 mcg/actua tion breath activated aerosol 2021 active Not Available Not Available Not Avai lable Kimberly 1.5 mg-30 mcg tablet TAKE 1 TABLET BY MOUTH ONCE DAILY active Not Available Not Available No t Available Vitals Date Recorded Body height Body mass index (BMI) Body weight Body temperature Heart rate Systolic blood pressure Diastolic blood pressure Provider Name and Address Organization Details Last Updated DateTime 0 154.94 cm 40.7 kg/m2 47631.1 6 g 97.9 [degF] 72 /min 130 mm[Hg] 80 mm[Hg] Rita Michel [facility] 0 09:24:13 Date Recorded Body height Body mass index (BMI) Body weight Body temperature Heart rate Systolic blood pressure Diastolic blood pressure Provider Name and Address Organization Details Last Updated DateTime 0 154.94 cm 40.8 kg/m2 22610.9 5 g 96.8 [degF] 68 /min 128 mm[Hg] 74 mm[Hg] Aj Brody [facility] 0 09:10:36 Date Recorded Body height Body mass index (BMI) Body weight Body temperature Heart rate Systolic blood pressure Diastolic blood pressure Provider Name and Address Organization Details Last Updated DateTime 1 154.94 cm 43.3 kg/m2 422480. 65 g 98.1 [degF] 70 /min 128 mm[Hg] 78 mm[Hg] Gina Junior [facility] 1 08:02:39 Social History Question Answer Notes LastModified by [employer] Details LastModified Time Tobacco Smoking Status Never Smoker [facility] 03/22/2020 09:12:48 How Much Tobacco Do You Chew? None Information not available 03/22/2020 How Much Tobacco Do You Smoke? No Information not available 03/22/2020 Sex: Unknown Functional Status Question Answer Note LastModified by [employer] Details LastModified Time What is your level of alcohol consumption? None Information not available 03/22/2020 Do you or have you ever used smokeless tobacco? Never used smokeless tobacco Information not available 03/22/2020 Do you or have you ever used e-cigarettes or vape? Never used electronic cigarettes Information not available 03/22/2020 Mental Status None recorded. Family History Relationship Description Onset Age of this Age Resolved Age Notes LastModified by Organization Details LastModified Time Brother Asthma Not available 03/22/2020 09:12:42 Medical History Condition Response Anxiety Disorder Y Gynecological HistoryNo gynecological history recorded. Obstetrics History GPAL:G 0 P 0 0 0 0 Past Encounters Encounter ID Performer Location Encounter Start Date Encounter Closed Date Diagnosis/Indication Diagnosis SNOMED-CT Code Diagnosis ICD10 Code Diagnosis Note [id number] MD SOFIA MCCOY [facility] [address] [place] [address] 03/22/2020 08:56:27 03/22/2020 11:30:05 Dysfunction of eustachian tube 06069361 H69.93 Chronic mu coid otitis media of left middle ear 1804823734 870538 H65.32 Acute otitis media 62759 03 H66.93 [id number] [facility] [address] [place] [address] 03/22/2020 09:45:14 03/22/2020 12:37:22 Left conductive hearing loss 7361180259 107 H90.12 [id number] JENNY SILVER [facility] [address] [place] [address] 05/24/2020 09:06:35 05/24/2020 15:44:54 Dysfunction of eustachian tube 95463700 H69.93 Acute otitis media 64784 03 H66.93 03/22/20 - left otorrhea 05/24/20 - resolved Allergic rhinitis 595642 04 J30.9 xhance and cetirizine previously did SLIT with Dr. Becerra 4-5 years ago, stopped after a year 2/2 [id number] JENNY SILVER MD [facility] [address] [place] [address] 05/16/2021 07:55:40 05/16/2021 10:21:29 Dysfunction of eustachian tube 31699546 H69.93 left T-tube Acute otitis media 96427 03 H66.93 03/22/20 - left otorrhea 05/24/20 - resolved 05/16/21 - right, following RSV infection, likely with spontaneou s rupture which healed prior to seeing pa Allergic rhinitis 135660 04 J30.9 xhance and cetirizine 05/16/21 - add azelastine previously did SLIT with Dr. Becerra 4-5 years ago, stopped after a year 2/2 Serous mariola tis media of right ear 8764452409 581002 H65.91 [id number] ALLY KERR, AUD, CCC-A [place] [facility] [address] [place] [address] 05/16/2021 08:49:14 05/16/2021 08:50:50 Abnormal auditory perception 15317543 H93.293 Health Concerns Section Related Observation LastModified by Organization Detai ls LastModified Time None Recorded Concern Status LastModified by Organization Details LastModified Time None Recorded Advance Directives Directive None Recorded Payers Insurance Date Sequence Insurance Name Policy Number Policy Plata Covered Member ID Plata Member ID Guarantor Name 05/13/2021 1 [employer] [id number] Emely Dejesus [id number] Hedy Dejesus Notes Date Note Type Note Provider Name and Address Organization Details Recorded Time 03/22/2020 text/html Hedy is a 29 year old who comes in today for consultation at the request of Dr. Misbah Blanchard for an evaluation of her ears. Long HO ETD. Had 4x sets of tubes growing up with Dr. Rich. Last set was about 10-15 years ago. Left one still in place. Usually her right ear is the worse ear, but in October had a left AOM. Ear drained for a while. Eventually drainage cleared up but now feels the fullness and pressure sensation on that side more. Takes cetirizine for allergies which keeps it well controlled. Denies significant nasal congestion or PND. Saw Dr. Becerra a couple years ago that tried her on SLIT and nasal sprays, which she states did not help. Previously had T/A before. Wears cotton in the ears as she states that helps prevent the feeling like she has to pop the ear. Thinks left side hearing is down since recent infection. Fullness/pressure while cause headaches some. JENNY SILVER MD [facility] [place], [address], [facility] 03/22/2020 10:05:23 05/24/2020 text/html doing well no le ft ear drainage dried up fairly quickly on the ggt and augmentin still feels bilateral ear fullness some has gotten better on xhance and cetirizine feels like allergies are better as well JENNY SILVER MD [address] [place] [address], [address], [facility] 05/24/2020 11:07:55 05/16/2021 text/html rsv about 2 week s ago. Got it from her kids. Had fairly severe right ear pain and eventually right ear bleeding and drainage for about 5 days. She went to an urgent treatment center was placed on Ciprodex drops which did not seem to resolve the issue. She finally went to her primary care doctor who put her on cefdinir and notes that the drainage cleared up within about 2 days of starting this. She has since completed the course of that.All on right sideNo left-sided issues no drainage Allergies otherwise been okay on Zyrtec and twice daily XHANCE JENNY SILVER MD [address] [place], [address], [facility] 05/16/2021 10:07:37 OBGyn Episode No OBEpisode recorded.
[2025-01-09 16:17] LABS: Bilirubin,Urine Negative (Negative)
[2025-01-09 16:19] LABS: Adenovirus F 40/41, stool Not Detected (NotDetected); Astrovirus Not Detected (NotDetected); Campylobacter Not Detected (NotDetected); Clostridium Difficile A/B, PCR Not Detected (NotDetected); Cryptosporidium Not Detected (NotDetected); Cyclospora Cayetanesis Not Detected (NotDetected); Entamoeba histolytica Not Detected (NotDetected); Enteroaggregative E coli Not Detected (NotDetected); Enteropathogenic E coli Not Detected (NotDetected); Enterotoxigenic E coli Not Detected (NotDetected); Giardia lamblia Not Detected (NotDetected); Norovirus Not Detected (NotDetected); Plesimonas Shigalloides, PCR Not Detected (NotDetected); Salmonella, PCR Not Detected (NotDetected); Sapovirus Not Detected (NotDetected); Shiga-like toxin E coli Not Detected (NotDetected); Shigella Enterovasive E coli Not Detected (NotDetected); Vibrio Cholerae Not Detected (NotDetected); Vibrio, PCR Not Detected (NotDetected); Yersinia Entercolitica, PCR Not Detected (NotDetected)
[2025-01-09 16:19] LABS: Bacteria,Urine 1+ /lpf; WBC,Urine Occasional #/hpf (0-3)
[2025-01-09] MEDS: ONDANSETRON 4MG/2ML VIAL 4 MG IV (16:30)
[2025-01-09] MEDS: 0.9 % SODIUM CHLORIDE 1000ML 1,000 ML 999 ML IV ×2 (16:31→17:38)
[2025-01-09 16:49] LABS: Basophils % 0.4 % (0.1-2.0); Eosinophils % 0.6 % (0.1-12.0); Hemoglobin 15.7 g/dL (12.2-16.2); Immature Granulocytes # 0.02 10^3uL; Immature Granulocytes % 0.4 %; Lymphocytes # 0.8 K/mm3 (0.7-4.5); Lymphocytes % 15.2 % (10-50); Mean Corpuscular HGB Conc 33.4 g/dL (31.8-35.4); Mean Corpuscular Hemoglobin 29.7 pg (27.0-31.2); Mean Platelet Volume 9.8 fl (7.4-10.4); Monocytes # 0.5 K/mm3 (0.1-1.0); Monocytes % 9.1 % (1.7-9.3); Neutrophils # 3.9 K/mm3 (1.8-7.8); Neutrophils % 74.3 % (37.0-80.0); Nucleated Red Blood Cells # 0 10^3/uL; Nucleated Red Blood Cells % 0 %; Platelet Count 301 K/mm3 (142-424); Red Blood Count 5.28 M/mm3 (4.20-5.40); Red Cell Distribution Width 13.5 % (11.5-17.5); Red Cell Distribution Width-SD 44.3 fL; White Blood Count 5.3 K/mm3 (4.8-10.8)
[2025-01-09 16:59] LABS: Albumin Level 5.1 g/dl (3.5-5.0); Chloride 108 mmol/L (98-107); Sodium 140 mmol/L (136-145)
[2025-01-09 17:00] LABS: Potassium 3.5 mmoL/L (3.5-5.1)
[2025-01-09 17:02] LABS: Alanine Aminotransferase 32 U/L (12-78); Albumin/Globulin Ratio 1.6 (1.1-1.8); Alkaline Phosphatase 70 U/L (38-126); Anion Gap 16.5 mEq/L (5-15); Aspartate Amino Transferase 37 U/L (14-36); Bilirubin,Total 0.7 mg/dl (0.2-1.3); Blood Urea Nitrogen 18 mg/dl (7-17); Carbon Dioxide 19 mmol/L (22.0-30.0); Creatinine Clearance Estimated 136 mL/min (50-200); Estimated Glomerular Filt Rate 72 ml/min (>60); GFR (African American) 87 ML/MIN (>60); Globulin 3.1 g/dL (1.3-3.2); Magnesium 2.2 mg/dl (1.6-2.3); Total Protein,Serum 8.2 g/dl (6.3-8.2)
[2025-01-09 17:03] LABS: Calcium 9.1 mg/dl (8.4-10.2); Glucose 109 mg/dl (74-100)
[2025-01-09 17:23] LABS: Procalcitonin 0.168 ng/mL (0.0-2.0)
--- NOTE | 2025-01-09 18:07 | PC.NURSE ---
per lab 5 minutes until the diarrhea panel results.
[2025-01-09 18:09] LABS: Rotavirus A Detected (NotDetected)
[2025-01-09 18:29] VITALS: BP 159/67; PULSE 89; RESP 16; TEMP 36.6; O2SAT 100
== END 2025-01-09 18:36 | disposition home or self-care (01) ==
PROVIDERS: Physician Assistant; Emergency Provider Emergency Medicine; PCP Internal Medicine
DX: A08.0 Rotaviral enteritis (principal); R11.2 Nausea with vomiting, unspecified; R51.9 Headache, unspecified; R19.7 Diarrhea, unspecified
CPT/HCPCS: 80053; 81001; 83735; 84145; 85025; 87507; 96361; 96374; 99284; J2405; J7030

== ENCOUNTER 2025-04-22 12:34 | Outpatient (CLI) | payer BC, SELFPAY ==
--- OUTSIDE RECORDS SUMMARY | 2025-03-07 11:39 | XMS_ITS | Encounter Summary ---
Author Organization Healthcare Address [address] [place] [address] Care Team Providers Care Top Taper Machine Name Role Phone Misbah Sanches MD Primary Care Provider [phone] Sena Srivastava RN Unavailable Unavailab le Reason for Visit * Reason Comments Follow-up Encounter Details Date Type Department Care Team (Latest Contact Info) Description 03/07/2025 11:39 AM EDT - 03/07/2025 11:59 PM EDT Hospital Encounter [facility] [address] [place] [address] Randi Nogueira MD [address] [place] [address] Venous lymphatic malformation; Other chronic pain Discharge Disposition: Home or Self Care Social History Tobacco Use Types Packs/Day Years Used Date Smoking Tobacco: Never Passive Smoke Exposure: Never Smokeless Tobacco: Never Alcohol Use Standard Drinks/Week Comments Never 0 (1 standard drink = 0.6 oz pur e alcohol) Comments Unknown Sex and Gender Information Value Date Recorded Sex Assigned at Not on file Legal Sex Female 6:26 PM EDT Gender Identity Not on file Sexual Orientation Not on file documented as of this encounter Last Filed Vital Signs Vital Sign Reading Time Taken Comments Blood Pressure 113/76 03/07/2025 11:59 AM EDT Pulse 67 03/07/2025 11:59 AM EDT Temperature 36.4 C (97.6 F) 03/07/2025 11:59 AM EDT Respiratory Rate - - Oxygen Saturation 96% 03/07/2025 11:59 AM EDT Inhaled Oxygen Concentration - - Weight 98.7 kg (217 lb 9.5 oz) 03/07/2025 11:59 AM EDT Height 158 cm (5' 2.21 ) 03/07/2025 11:59 AM EDT Body Mass Index 39.54 03/07/2025 11:59 AM EDT documented in this encounter Medications at Time of Discharge cetirizine (ZyrTEC) 10 MG tablet Take 10 mg by mouth 1 (one) time each day. Kimberly 1.5/30 1.5-30 MG-MCG tablet tablet 12/27/2020 meloxicam (Mobic) 7.5 MG tabletIndications :Venous lymphatic malformation,Othe r chronic pain Take 1 tablet by mouth daily. As directed. 90 tablet 5 03/07/2025 sertraline (Zoloft) 100 MG tablet Take 100 mg by mouth 1 (one) time each day. documented as of this encounter Miscellaneous Notes * Patient Instructions - Randi Nogueira MD - 03/07/2025 11:45 AM EDT It is so good to see you. It sounds like it has been a very busy year with lots of medical changes.I am glad to hear that Meloxicam is still working well for you! Please ask for your next set of labs to be sent to us. Our Fax # is [phone]. I will review andthen touch base with you. We will plan to see each other again in about 6 months, primarily for medicine management. Sooner if you need anything or have concerns. If you have concerns or questions before our follow up, please reach out to our team in one of the following ways: Will If you have NON-URGENT calls: Dial for Sena Srivastava [facility] Clinic Nurse Navigator. If your call is not answered, leave a message and your call will be returned. You may also email our team at [email or web address], if preferred. For concerns related to your vascular anomaly after 4:30pm or on weekends, dial and ask to speak to the Pediatric Senior Ui Ux Developer/Oncologist on-call. Your [facility] Team Attending: Randi Nogueira MD Nurse Practitioner: Thanh Rebollar APRN Nurse Navigator: Sena Srivastava RN [email or web address] * Addendum Note - Randi Nogueira MD - 03/07/2025 11:45 AM EDTEncounter addended by: Randi Nogueira MD on: 03/16/2025 11:11 PM Actions taken: Problem List reviewed, Medication List reviewed, Allergies reviewed, Clinical Note Signed * Progress Notes - Randi Nogueira MD - 03/07/2025 11:45 AM EDT [facility] Pediatric Hematology Oncology Clinic Vascular Anomaly Clinic Note Subjective Hedy Dejesus is a 34 y.o. 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 Referring Physician: No referring provider defined for this encounter. Primary Care Provider: Misbah Sanches MD Treatment History/Presentation: Hedy is a 26 yo WF referred to the [facility], by Dr. Sherwin Wooten, for evaluation and recomendations for management of a suspected vascular malformation within the distal vastus medialis of the left thigh. She was referred to Orthopedics for chronic left kn ee pain that had worsened over the past year. 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 She was evaluated for a possible knee injury (no imaging) and received physical therapy. During her PT, Hedy wore a knee brace and would also have the area iced down following her therapy. She found that her knee was less bothersome if she wore some sore of brace. A little more than a year ago, Hedy's pain intensified. She was for her daughter at the time (her daughter is now 10 mos old). She would wear her knee brace at times during her to help reduce the swelling and pain.Following the of her daughter her pain persisted and appears to improve only with Ibuprofen (400mg PO maybe once or twice a day) and/or use of her knee brace. Her discomfort has progressively increased such that she sought additional evaluation. Imaging done at that time was read as calcifications in her quads . She was then referred for an MRI of the left thigh which demonstrated intramus cular fatty infiltration of the VMO . She was referred to Dr. Sherwin Wooten for further assessment and he reviewed the imaging with [facility] who confirmed the finding of a vascular malformation (measuring 1.8 x 1.3 x 1.5 cm) within the vastus medialis (not isointense to fat). Dr. Albright was present for the initial portion of the visit in May 2017 and performed ultrasound on the medial aspect of the left knee. She was able to see a small area or two that could be sclerosed, but noted that the ultrasound appeared to be more consistent with a combined veno-lymphatic malformation than a simple venous lesion. Hedy and her discussed their desire to start a family soon. Given the expected increased blood volume associated with , we discussed the potential need to wait for sclerosis until they had discussed their plans further. (12/02/18) In May 2017, she was seen by Jesse Steph PT and, following assessment of her pain and swelling, decision to provide a Ready Wrap for night wear and kinesiotaping for day time managementof her edema. She has not continued to use the wrap because it is difficult to get an accurate fit and, given the fact that her pain is greatest at night, it is very uncomfortable/awkward to sleepin. Hedy also noted that the swelling during the day did not appear to have been reduced with the use of kinesiotape. Mobic did not seem to be very effective. At her last visit, we discussed use of Sirolimus and Hedy and her opted to not begin therapy because of a desire to have another child. Roman is now 6 mos of age. Post-, Hedy began OCPs (estrogen based). She is having more difficulty with swelling and pain than she did prior to this . Now she has an almost neuropathic component to her pain as well. Interval History: Since her last visit to the [facility], Hedy has again had a busy year. Hedy became and miscarried. As part of the evaluation, she was evaluated by MUSCULOSKELETAL PHYSICIAN and in February2024 she was diagnosed with uterine fibroids. Management of her PCOS included the addition of Zepbound to her medications and has lost 25 lbs. She and her have decided to not continue to conceive, instead focusing on Hedy's health. At the beginning of November 2024, Hedy resumed her Meloxicam therapy and reports that her pain and discomfort (worse while off Mobic from 05/2025 to 10/2024) has improved significantly on Meloxicam. continues to have a very good response to the Mobic. She wears her compression sleeve intermittently and does not believe that a new one is warranted (referred in February 2023 to PT, but cancelled the appointment). Discussed the importance of ensuring the fit is appropriate. Overall, Hedy believes her pain and swelling is well managed with the NSAID alone. She denies any chest pain, SOA, or fevers. Data Review: The following portions of the chart were reviewed this encounter and updated as appropriate: Tobacco Allergies Meds Problems Med Hx Surg Hx Fam Hx Social History: Hedy Dejesus has graduated from high school and college; she lives at home with her and 2 children in [place], [place]. Patient is allergic to sulfa drugs and elemental sulfur. Current Outpatient Medications Medication Instructions cetirizine (ZYRTEC) 10 mg, ZZ Daily RT Kimberly 1.5/30 1.5-30 MG-MCG tablet tablet No dose, route, or frequency recorded. meloxicam (MOBIC) 7.5 mg, Oral, Daily, As directed. sertraline (ZOLOFT) 100 mg, Daily Review of Systems: A 14 point review of systems was performed and was otherwise negative except as noted in the HPI section or above. Objective Visit Vitals BP 113/76 Pulse 67 Temp 36.4 ??C (97.6 ??F) (Oral) Ht 1.58 m (5' 2.21 ) Wt 98.7 kg (217 lb 9.5 oz) SpO2 96% BMI 39.54 kg/m?? Smoking Status Never BSA 2.08 m?? Physical Exam Constitutional: General: She is not in acute distress. Appearance: Normal appearance. She is well-developed. She is obese. HENT: Head: Normocephalic and atraumatic. Right Ear: External ear normal. Left Ear: External ear normal. Nose: Nose normal. Mouth/Throat: Mouth: Mucous membranes are moist. Eyes: Extraocular Movements: Extraocular movements intact. Pupils: Pupils are equal, round, and reactive to light. Neck: Thyroid: No thyromegaly. Vascular: No JVD. Cardiovascular: Rate and Rhythm: Normal rate and regular rhythm. Pulses: Normal pulses. Heart sounds: Normal heart sounds. Pulmonary: Effort: Pulmonary effort is normal. Breath sounds: Normal breath sounds. Abdominal: General: There is distension (obese). Palpations: Abdomen is soft. Genitourinary: Comments: Reinier V Musculoskeletal: General: Normal range of motion. Cervical back: Normal range of motion. Right lower leg: No edema. Left lower leg: No edema. Comments: FROM at all major joints; no swelling or erythema of the joints; subtle fullness at the distal portion of the left vastus medialis which remains tender only with deep palpation at the levelof the superior edge of the patella; no appreciable mass at rest but slightly more prominent after several deep knee bends; full strength (and equal to right leg); no appreciable surface discoloration or venous distention. Skin: General: Skin is warm. Capillary Refill: Capillary refill takes less than 2 seconds. Coloration: Skin is not jaundiced or pale. Neurological: General: No focal deficit present. Mental Status: She is alert and oriented to person, place, and time. Gait: Gait normal. Psychiatric: Mood and Affect: Mood normal. Behavior: Behavior normal. Judgment: Judgment normal. Laboratory: Last obtained in October 2020. Will delay until ready to discontinue her Meloxicam. Imaging: Last obtained in May 2017. 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 d-dimer previously low (previous monitoring while on estrogen containing OCP for risk assessment for thrombosis) continue Meloxicam at 7.5 mg once daily provided ongoing benefits are appreciated encouraged continued post activity RICE (rest, ice, compression, elevation) therapy, and prolonged rest after extensive aggravation Encouraged consistent use of compression garment (especially during )--to call if needs new referral for a fitted compression garment reassess in 6 months (for laboratory monitoring); Hedy to share our contact information with her OB Again briefly reviewed the use of Sirolimus therapy for the treatment of combined VLMFs and previously provided literature for consideration; continue to hold given the knowledge that we would require discontinuation of the med during Problem/Assessment/Plan 2: Weight Loss therapy Currently on Zepbound Problem/Assessment/Plan 3: Family planning Hedy is comfortable with their decision to not try to conceinve Diagnosis: Venous lymphatic malformation Other chronic pain No orders of the defined types were placed in this encounter. No future appointments. Next appointment in this department: RTC in 6 mon (or as necessary should you begin family planning). Visit time: Billing based on Medical Decision Making: In preparing for and during this encounter time was spent; including preparing to see the patient, which involved review/interpretation of diagnostics and reports; obtaining and/or reviewing separately obtained history; performing appropriate physical exam; ordering/scheduling medications, tests or procedures; communicating findings and counseling/educating the patient, family and/or caregiver; documentation in EMR; and care coordination. Randi Nogueira MD documented in this encounter Plan of Treatment Not on file documented as of this encounter Visit Diagnoses Diagnosis Venous lymphatic malformation Other chronic pain documented in this encounter Care Teams Top Taper Machine Relationship Specialty Start Date End Date Misbah Sanches MD [address] [facility] [address] [place] [facility] PCP - General 12/29/20 Sena Srivastava, RN [facility] Nurse Navigator Pediatric Hematology and Oncology 01/30/23 documented as of this encounter
--- OUTSIDE RECORDS SUMMARY | 2025-04-22 12:36 | XMS_ITS | Encounter Summary ---
Author Organization Healthcare Address [address] [place] [address] Care Team Providers Care Fire Management Technician Name Role Phone Misbah Sanches MD Primary Care Provider [phone] Sena Srivastava RN Unavailable Unavailab le Encounter Details Date Type Department Care Team (Latest Contact Info) Description 03/07/2025 Travel Social History Tobacco Use Types Packs/Day Years [...] on file documented as of this encounter Plan of Treatment Not on file documented as of this encounter Visit Diagnoses Not on filedocumented in this encounter Care Teams Fire Management Technician Relationship Specialty Start Date End Date Misbah Sanches MD [address] [facility] [address] [place] [id number] PCP - General 12/29/20 Sena Srivastava, RN [facility] Nurse Navigator Pediatric Hematology and Oncology 01/30/23 documented as of this encounter
--- OUTSIDE RECORDS SUMMARY | 2025-04-22 12:36 | XMS_ITS | Clinical Summary ---
[facility] [address] [place] [address] Care Team Providers Care Display Screen Fabricator Name Role Phone Misbah Sanches MD Primary Care Provider [phone] Allergies No known active allergies Medications Vit-Fe Fumarate-FA ( 27-) 27-1 MG tablet tablet Take 1 tablet by mouth Daily. Active sertraline (ZOLOFT) 50 MG tablet Take 50 mg by mouth Daily. Active cetirizine (zyrTEC) 10 MG tablet Take 10 mg by mouth Daily. Active raNITIdine (ZANTAC) 75 MG tablet Take 75 mg by mouth 2 (Two) Times a Day. Active ibuprofen (ADVIL,MOTRIN) 600 MG tablet Take 1 tablet by mouth Every 6 (Six) Hours As Needed for Mild Pain . 30 tablet 05/27/2018 Active docusate sodium 100 MG capsule Take 100 mg by mouth 2 (Two) Times a Day. 60 capsule 2 05/27/2018 Active Active Problems Problem Noted Date Diagnosed Date S/P section 05/27/2018 Term 05/25/2018 Resolved Problems Problem Noted Date Diagnosed Date Resolved Date Low forceps delivery, christina benton, current hospitalization 04/24/2016 04/25/2016 Third degree perineal lacera tion during delivery 04/24/2016 04/25/2016 Normal labor 04/21/2016 04/24/2016 Immunizations Immunization Administration Dates Next Due Fluzone (or Fluarix & Flulaval for VFC) >6mos influenza Split 04/25/2016 Family History Medical History Relation Name Comments Diabetes Maternal Grandfather Hypertension Maternal Grandfather Diabetes Maternal Grandmother Hypertension Maternal Grandmother Osteoporosis Maternal Grandmother Stroke Maternal Grandmother Relation Name Status Comments Maternal Grandfather Maternal Grandmother Social History Tobacco Use Types Packs/Day Years Used Date Smoking Tobacco: Never Smokeless Tobacco: Never Alcohol Use Standard Drinks/Week Comments No 0 (1 standard drink = 0.6 oz pur e alcohol) [place] Depression Scale Answer Date Recorded Retired [place] Depression Score 7 05/26/2018 Retired EPD Scale: Thought of Harming Self Unrec ognized value 05/26/2018 Abuse Screen Answer Date Recorded Unsafe at Home or Work/School Not on file Feels Threatened by Someone? Not on file 04/2023 Does Anyone Keep You from Co ntacting Others or Doint Things Outside the Home? Not on file 05/26/2023 Physical Sign of Abuse Present Not on file 1 Housing Stability Answer Date Recorded Current Living Arrangements Not on file 04/2023 Potentially Unsafe Housing Conditions Not on bala e 05/26/2023 Family and Community Support Answer [place] Recorded Help with Day-to-Day Activities Not on file 05/26/2023 Lonely or Isolated Not on file 05/26/2023 Employment Answer Date Recorded Do you want help finding or keeping work or a kimberly b? Not on file 05/26/2023 Disabilities Answer Date Recorded Concentrating, Remembering, or Making Decisions Difficulty Not on file 05/26/2023 Doing Errands Independently Difficulty Not on fi le 05/26/2023 Education Answer Date Recorded Help with school or training? Not on file Preferred Language Not on file 05/26/2023 Comments No Sex and Gender Information Value Date Recorded Sex Assigned at Not on file Legal Sex Female 10:29 AM EDT Gender Identity Not on file Sexual Orientation Not on file Last Filed Vital Signs Vital Sign Reading Time Taken Comments Blood Pressure 121/76 05/27/2018 7:00 AM EDT Pulse 89 05/27/2018 7:00 AM EDT Temperature 36.4 C (97.6 F) 05/27/2018 7:00 AM EDT Respiratory Rate 16 05/27/2018 7:00 AM EDT Oxygen Saturation 100% 05/25/2018 2:50 PM EDT Inhaled Oxygen Concentration - - Weight 98.9 kg (218 lb) 05/25/2018 11:12 AM EDT Height 154.9 cm (5' 1 ) 05/25/2018 11:12 AM EDT Body Mass Index 41.19 05/25/2018 11:12 AM EDT Plan of Treatment Health Maintenance Due Date Last Done Comments Annual Gynecologic Pelvic and Breast Exam 1990 ANNUAL PHYSICAL 05/22/2018 COVID-19 Vaccine ( season) 2025 10/06/2020, 09/06/2020 INFLUENZA VACCINE 05/18/2025 06/25/2022, , 06/12/2020, Additional history exists TDAP/TD VACCINES (2 - Td or Tdap) 04/16/2028 04/16/2018 HEPATITIS C SCREENING Completed 10/21/2017 Pneumococcal Vaccine 0-49 Aged Out No longer eligible based on patient's age to complete this topic Procedures Procedure Name Priority Date/Time Associated Diagnosis Comments HEPATITIS C ANTIBODY Routine 10/21/2017 2:48 PM EST 8 weeks gestation of care, subsequent , first trimester from Last 3 Months or Most Recently Relevant to Health Maintenance Results * Hepatitis C Antibody (10/21/2017 2:48 PM EST) Hepatitis C Ab Non-Reacti ve Non-Reacti ve 10/21/2017 8:27 PM EST [facility] Blood Venipuncture / Unknown 10/21/2017 2:48 PM EST 10/21/2017 2:48 PM EST us Mariam Dover MD LAB BLOOD ORDERABLES Final Re sult [facility]
[address] [id number], from Last 3 Months or Most Recently Relevant to Health Maintenance Insurance [employer] [facility] PPO Advance Directives * CPR (Attempt to Resuscitate) (Latest Code Status on File) Date Activated Date Inactivated Comments 05/25/2018 3:43 PM 05/27/2018 3:53 PM Question Answer Comments Code Status (Patient has no pulse and is not breathing): CPR (Attempt to Resuscitate) Medical Interventions (Patie nt has pulse or is breathing): Full * CPR (Attempt to Resuscitate) Date Activated Date Inactivated Comments 05/25/2018 10:57 AM 05/25/2018 3:43 PM Question Answer Comments Code Status (Patient has no pulse and is not breathing): CPR (Attempt to Resuscitate) Medical Interventions (Patie nt has pulse or is breathing): Full * Full Code Date Activated Date Inactivated Comments 04/23/2016 1:57 AM 04/25/2016 3:26 PM * Full Code Date Activated Date Inactivated Comments 04/21/2016 10:19 PM 04/23/2016 1:57 AM Care Teams Display Screen Fabricator Relationship Specialty Start Date End Date Misbah Sanches MD [address] [facility] [address] [place] [address] PCP - General Internal Medicine 05/24/18
--- OUTSIDE RECORDS SUMMARY | 2025-04-22 12:36 | XMS_ITS | Clinical Summary ---
Author Organization [facility] Address [address] [place] [address] Care Team Providers Care Window Covering Sales Consultant Name Role Phone Misbah Sanches MD Primary Care Provider [phone] Sena Srivastava RN Unavailable Unavailab le Allergies Active Allergy Reactions Criticality Noted Date Comments Elemental Sulfur Other - please docum ent in the comment field Low 01/06/2017 vomiting Sulfa Drugs Nausea And Vomiting 10/12/2021 Medications cetirizine (ZyrTEC) 10 MG tablet Take 10 mg by mouth 1 (one) time each day. Active sertraline (Zoloft) 100 MG tablet Take 100 mg by mouth 1 (one) time each day. Active Kimberly 1.5/30 1.5-30 MG-MCG tablet tablet 12/27/2020 Activ e meloxicam (Mobic) 7.5 MG tabletIndication s:Venous lymphatic malformation,Oth er chronic pain Take 1 tablet by mouth daily. As directed. 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 (03/15/2024): Congenital vascular malformation Perennial allergic rhinitis 05/30/2015 Overview (03/15/2024): From Automated Load;Provider: Kedar Rich III;Status: Active Resolved Problems Problem Noted Date Diagnosed Date Resolved Date Abdominal pain 03/15/2024 03/15/2024 UTI (urinary tract infection) 03/15/2024 03/15/2024 Upper airway resistance syndrome 03/15/2024 03/15/2024 Snoring 03/15/2024 03/15/2024 Restless sleeper 03/15/2024 03/15/2024 Non-restorative sleep 03/15/20242023 Nocturia 03/15/2024 03/15/2024 Gallstones 03/15/2024 03/15/2024 Frequent nocturnal awakening 03/15/2024 03/15/2024 Foot sprain 03/15/2024 03/15/2024 Foot pain, left 03/15/2024 03/15/2024 Fatigue 03/15/2024 03/15/2024 Excessive daytime sleepiness 03/15/2024 03/15/2024 Hypertrophy of nasal turbinates 07/12/2015 03/15/2024 Overview (03/15/2024): From Automated Load;Provider: Kedar Rich III;Status: Active Eustachian tube disorder 05/30/2015 Overview (03/15/2024): From Automated Load;Provider: Kedar Rich III;Status: Active Headache disorder 05/30/2015 03/15/2024 Overview (03/15/2024): From Automated Load;Provider: Kedar Rich III;Status: Active Encounters Date Type Department Care Team Description 03/07/2025 11:39 AM EDT - 03/07/2025 11:59 PM EDT Hospital En[facility] [address] [address] Randi Nogueira MD Venous lymphatic malformation; Other chronic pain Discharge Disposition: Home or Self Care 03/07/2025 Travel from Last 3 Months Immunizations Immunization Administration Dates Next Due Hep A, Adult 06/14/2019 Influenza, Split (incl. narda fied surface antigen) 04/25/2016 Influenza, injectable, quadr ivalent, preservative free 06/25/2022,07/11/2021,06/12/2020,2018,05/27/2018 Tdap 04/16/2018 Family History Medical History Relation Name Comments Deep vein thrombosis Neg Hx Pulmonary embolism Neg Hx Vascular Disorder Neg Hx Relation Name Status Comments Daughter 1 Alive Daughter 2 Alive Social History Tobacco Use Types Packs/Day Years [...] Mass Index 39.54 03/07/2025 11:59 AM EDT Plan of Treatment Health Maintenance Due Date Last Done Comments [facility]-Depression Screening 1990 [facility]-HIV Screening 1990 [facility]-/Child/Adol SDOH Screenings 1990 [facility]-Obesity Intervention 1996 [facility]-Varicella Vaccines (1 of 2 - 13+ 2-dose series) 11/11/2003 [facility]- SDOH Screenings 2008 [facility]-Adult SDOH Screenings 2008 [facility]-Hepatitis B Vaccines (1 of 3 - 19+ 3-dose series) 2009 [facility]-Pap Smear 11/11/2011 HPV Vaccines (1 - 3-dose SCDM series) 2017 [facility]-Cervical Cancer Screening 2020 [facility]-HPV/Cotest 2020 [id number] Vaccine (3 - season) 2024 10/06/2020, 09/06/2020 [facility]-Influenza Vaccine (#1) 04/18/202506/25, 07/11/2021, 06/12/2020, Additional history exists [facility]-DTaP,Tdap,and Td Vaccines (2 - Td or Tdap) 04/16/2028 04/16/2018 [facility]-Zoster Vaccines (1 of 2) 2040 [facility]-Hepatitis C Screening Completed 10/21/2017 [facility]-Hepatitis A Vaccines Aged Out 06/14/2019 No longer eligible based on patient's age to complete this topic [facility]-HIB Vaccines Aged Out No longer e ligible based on patient's age to complete this topic [facility]-IPV Vaccines Aged Out No longer e ligible based on patient's age to complete this topic [facility]-Pneumococcal Vaccine: Pediatrics (0 to 5 Years) and At-Risk Patients (6 to 49 Years) Aged Out No longer eligible based on patient's age to complete this topic [facility]-Rotavirus Vaccines Aged Out No lo nger eligible based on patient's age to complete this topic Insurance [place] [id number] SUSHIL Care Teams Window Covering Sales Consultant Relationship Specialty Start Date End Date Misbah Sanches MD [address] [facility] [address] [place], [place] [address] PCP - General 12/29/20 Sena Srivastava, RN [facility] Nurse Navigator Pediatric Hematology and Oncology 01/30/23
--- OUTSIDE RECORDS SUMMARY | 2025-04-22 12:36 | XMS_ITS | Patient Health Record ---
Author Organization [facility] [place] Address [address] [facility] [address] [place] [address] Care Team Providers Care Field Artillery Fire Control Man Name Role Phone Rochelle Parkinson Unavailable [phone] Allergies Allergen (clinical drug ingredient) Drug/Non Drug Allergy documented on EMR Reaction Allergy Type Onset Date Status sulfamethoxazole / trimethoprim SULFAMETHOXAZOLE-T RIMETHOPRIM Unspecified Drug Allergy 11/19/2016 Active Reason For Referral No Information Medications Medication SIG (Take, Route, Frequency, Duration) Notes Start Date End Date Status Kimberly FE 1.5-30 MG-MCG Tablet TAKE 1 TABLET DAILY Active Meloxicam 30 MG/ML Injectable as directed Intravenous Acti ve Sertraline HCl 100 mg Tablet 1 tablet orally daily; Duration: 30 days Active ZyrTEC Active metFORMIN HCl ER 500 MG Tablet Extended Release 24 Hour 1 tablet with evening meal Orally Once a day; Duration: 30 days 10/06/2023 Active Phentermine HCl 37.5 MG Tablet 1/2 tablet Orally Once a day; Duration: 30 days 10/06/2023 Active Social History Tobacco Use: Social History Observation Description Date Details (start date - stop date) Never Smoker NA - NA Sex Assigned At : Social History Observation Description Sex Assigned At Female Social History Drugs/Alcohol: Social Info Question Answer Notes Drugs Have you used drugs other than those for medical reasons in the past 12 months? No Alcohol Screen Did you have a drink containing alcohol in the past year? No Points 0 Interpretation Negative Tobacco Use: Social Info Question Answer Notes Tobacco Use/Smoking Are you a nonsmoker Additional Details Category Social Info Options Details Migrated Social History Drug/Alcohol: den ies/denies Tobacco Use: denies Problems Problem Type SNOMED Code ICD Code Onset Dates Problem Status W/U Status Risk Notes Problem Urinary incontinence (677064943) Urinary incontinence (R32) Active confirmed Problem Gynecological examination normal (380104256750675 ) Cervical smear, as part of routine gynecological examination (Z01.419) 11/20/19 17 Active confirmed Annual without abnormal findings Plan Of Treatment No Information Insurance Providers Payer Name Payer Address Payer Phone Subscriber Number Group Number Insured Name Patient Relationship to Insured Coverage Start Date Coverage End Date [employer] PPO [address] [place] [address] [id number] Hedy Hernandez Self - patient is the insured 2 Medical (General) History Medical History History ICD Code anxiety mastitis obesity Surgical History Surgery Date(Month/Year) wisdom teeth T&A Ear tubes [facility] 05/2022
--- OUTSIDE RECORDS SUMMARY | 2025-04-22 12:36 | XMS_ITS | Clinical Summary ---
Author Organization [facility] Address [address] [place] [address] Phone Care Team Providers Care Administrative Assistant Name Role Phone Unavailable Primary Care Provider Unavailabl e Allergies Active Allergy Reactions Criticality Noted Date Comments Sulfa (Sulfonamide Antibiotics) Nausea And Vomiting 10/12/2021 Medications No known medications Social History Tobacco Use Types Packs/Day Years Used Date Smoking Tobacco: Never Smokeless Tobacco: Never Alcohol Use Standard Drinks/Week Comments Yes 0 (1 standard drink = 0.6 oz pur e alcohol) occ Comments Unknown Sex and Gender Information Value Date Recorded Sex Assigned at Not on file Legal Sex Female 9:49 PM EST Gender Identity Not on file Sexual Orientation Not on file Obstetrics History Last Filed Vital Signs Vital Sign Reading Time Taken Comments Blood Pressure 156/98 10/12/2021 9:55 PM EST Pulse 94 10/12/2021 9:55 PM EST Temperature 36.9 C (98.5 F) 10/12/2021 9:55 PM EST Respiratory Rate 15 10/12/2021 9:55 PM EST Oxygen Saturation 98% 10/12/2021 9:55 PM EST Inhaled Oxygen Concentration - - Weight 104.3 kg (230 lb) 10/12/2021 9:55 PM EST Height 154.9 cm (5' 1 ) 10/12/2021 9:55 PM EST Body Mass Index 43.46 10/12/2021 9:55 PM EST Plan of Treatment Health Maintenance Due Date Last Done Comments Annual Wellness Exam 1993 Hepatitis B Vaccine (1 of 3 - 19+ 3-dose series) 2009 Cervical Cancer Screening 11/11/2011 Pap Smear 11/11/2011 HPV/Pap Cotest 2020 COVID-19 Vaccine ( season) 2025 10/06/2020, 09/06/2020 Influenza Vaccine (#1) 2025 , 06/12/2020, 06/14/2019, Additional history exists DTaP/TDaP/Td (2 - Td or Tdap) 04/16/2028 04/16/2018 Meningococcal B Vaccine Aged Out No l onger eligible based on patient's age to complete this topic Pneumococcal Vaccine 0-49 Aged Out No longer eligible based on patient's age to complete this topic Insurance [place] [id number] [facility]
--- NOTE | 2025-04-22 13:00 | US_ITS ---
PROCEDURE INFORMATION: Exam: US Left Breast, Complete Exam date and time: 04/22/2025 12:58 PM Age: 34 years old Clinical indication: 6 month follow up probable cystic change TECHNIQUE: Imaging protocol: Complete ultrasound of all four quadrants of the left breast and the retroareolar regions, including ultrasound of the axilla when performed. COMPARISON: US BREAST LT COMPLETE 11/05/2024 3:42 PM FINDINGS: ULTRASOUND: Breast ultrasound findings: Sonographic images of the left breast including the retroareolar region, all 4 quadrants and the axilla do not demonstrate any solid masses. Scattered subcentimeter cysts are present. No architectural distortion or acoustical shadowing. No skin thickening or axillary adenopathy. IMPRESSION: No sonographic evidence of malignancy. Benign cystic change. Annual bilateral mammographic screening is recommended to commence at the age of 40 unless otherwise clinically indicated. ASSESSMENT: BI-RADS Category 2: Benign.
== END 2025-04-22 23:59 | disposition home or self-care (01) ==
LOC: RAD 12:34
PROVIDERS: PCP Internal Medicine; Visit Provider Obstetrics & Gynecology
DX: N60.02 Solitary cyst of left breast (principal)
CPT/HCPCS: 76641

== ENCOUNTER 2025-07-21 15:32 | Outpatient (CLI) | payer BC, SELFPAY ==
[2025-07-21 16:28] LABS: Hematocrit 39.1 % (37.0-47.0); Hemoglobin 13.4 g/dL (12.2-16.2); Immature Granulocytes % 0.1 %; Mean Corpuscular HGB Conc 34.3 g/dL (31.8-35.4); Mean Corpuscular Hemoglobin 30.4 pg (27.0-31.2); Mean Corpuscular Volume 88.7 fl (81-99); Nucleated Red Blood Cells % 0 %; Platelet Count 309 K/mm3 (142-424); Red Blood Count 4.41 M/mm3 (4.20-5.40); Red Cell Distribution Width-SD 42.3 fL; White Blood Count 6.9 K/mm3 (4.8-10.8)
[2025-07-21 17:20] LABS: Alanine Aminotransferase 16 U/L (12-78); Albumin Level 4.7 g/dl (3.5-5.0); Albumin/Globulin Ratio 1.6 (1.1-1.8); Alkaline Phosphatase 65 U/L (38-126); Anion Gap 12.2 mEq/L (5-15); Aspartate Amino Transferase 19 U/L (14-36); Bilirubin,Total 0.5 mg/dl (0.2-1.3); Blood Urea Nitrogen 19 mg/dl (7-17); Calcium 9.3 mg/dl (8.4-10.2); Carbon Dioxide 20 mmol/L (22.0-30.0); Chloride 107 mmol/L (98-107); Creatinine,Serum 0.70 mg/dl (0.52-1.04); Estimated Glomerular Filt Rate 96 ml/min (>60); GFR (African American) 116 ML/MIN (>60); Globulin 3.0 g/dL (1.3-3.2); Glucose 92 mg/dl (74-100); Potassium 4.2 mmoL/L (3.5-5.1); Sodium 135 mmol/L (136-145); Total Protein,Serum 7.7 g/dl (6.3-8.2)
[2025-07-21 17:46] LABS: Hemoglobin A1C < 4.0 % (4.0-6.0)
[2025-07-21 17:50] LABS: Thyroid Stimulating Hormone 1.74 uIU/mL (0.465-4.68)
== END 2025-07-21 23:59 | disposition home or self-care (01) ==
LOC: LAB 15:33
PROVIDERS: PCP Internal Medicine; Visit Provider Obstetrics & Gynecology
DX: E78.6 Lipoprotein deficiency (principal); R63.4 Abnormal weight loss; I10 Essential (primary) hypertension; E88.810 Metabolic syndrome; E66.9 Obesity, unspecified; E28.2 Polycystic ovarian syndrome
CPT/HCPCS: 36415; 80053; 83036; 84443; 85025